=== PATIENT | male | born 1955 | race Two or more races ===

== ENCOUNTER 2023-12-19 09:33 | Inpatient (IN) | payer MEDICARE, SELFPAY ==
[2023-12-19 09:57] VITALS: BP 131/73; PULSE 75; RESP 19; TEMP 36.8; O2SAT 95; BMI 48.7
--- NOTE | 2023-12-19 09:59 | XR_ITS ---
Examination: Foot, left, 3 views Technique: AP, oblique, lateral views foot, 3 views Date and time of exam: December 19, 2023 1017 hours INDICATIONS: Nonhealing wound at the heel and toes redness swelling and pain 3 weeks FINDINGS: Prominent osteopenia Soft tissue swelling about the toes Suspicious for cortical bone destruction involving the distal phalanx third digit and distal phalanx first digit IMPRESSION: Suspicious for cortical bone destruction involving the distal phalanx third digit and distal phalanx first digit Consider MRI foot without contrast follow-up
--- NOTE | 2023-12-19 09:59 | PD.EDRME ---
Rapid Medical Screening Exam RME Arrival date/time: 12/19/23 09:33 68-year-old male presents emergency department complaints of concerns for infection of his left foot patient has been followed up by the wound care center for the last month reports pain and redness has worsened Chief Complaint: Ankle/Foot Injury Time Seen by Provider: 12/19/23 09:39 Vital signs: Vital Signs Temperature 98.3 F 12/19/23 09:57 Pulse Rate 75 12/19/23 09:57 Respiratory Rate 19 12/19/23 09:57 Blood Pressure 131/73 H 12/19/23 09:57 Pulse Oximetry (%) 95 12/19/23 09:57 Oxygen Delivery Method Room Air 12/19/23 09:57
[2023-12-19 10:26] LABS: Basophils # (Auto) 0.1 Thou/mm3 (0.0-0.2); Basophils % (Auto) 1 % (0-2.5); Eosinophils % (Auto) 0 % (0-10); Hematocrit 43.2 % (41.0-53.0); Hemoglobin 14.7 g/dL (13.5-16.0); Immature Granulocytes % (Auto) 1 % (0-0); Immature Granulocytes Auto 0.06 Thou/mm3 (0.00-0.00); Lactate (Lactic Acid) 1.8 mMol/L (0.4-2.0); Lymphocytes % (Auto) 8 % (10-50); Mean Corpuscular Hemoglobin 27.8 pg (25.0-35.0); Mean Corpuscular Volume 82 fL (80-100); Monocytes # (Auto) 0.8 Thou/mm3 (0.0-0.8); Monocytes % (Auto) 6 % (0-12); Neutrophils # (Auto) 10.4 Thou/mm3 (1.8-7.7); Neutrophils % (Auto) 84 % (37-80); Nucleated Red Blood Cell % 0 /100 WBC (0); Platelet Count 227 Thou/mm3 (140-440); RDW Standard Deviation 43.5 fL (35.1-43.9); Red Blood Count 5.28 Miln/mm3 (4.50-5.90); White Blood Count 12.4 Thou/mm3 (3.8-10.6)
[2023-12-19 10:41] LABS: INR 1.1 (0.9-1.3); Partial Thromboplastin Time 33.6 Seconds (22.0-36.0); Prothrombin Time 11.8 Seconds (9.0-12.2)
[2023-12-19 10:51] LABS: Alanine Aminotransferase 13 U/L (10-49); Albumin, Serum 4.1 gm/dL (3.4-4.8); Alkaline Phosphatase 111 U/L (46-116); Anion Gap 7 (7-16); Aspartate Amino Transferase 13 U/L (0-34); BUN/Creatinine Ratio 13 Ratio (12-20); Bilirubin,Total 0.7 mg/dL (0.3-1.2); Blood Urea Nitrogen 13 mg/dL (9-23); C-Reactive Protein 23.9 mg/dL (0.0-0.9); Chloride 102 mMol/L (98-107); Estimated Creatinine Clearance 124.8 mL/min (>60); Glucose 107 mg/dL (74-106); Osmolality,Calculated 266 (275-295); Potassium 3.6 mMol/L (3.4-5.1); Procalcitonin 0.79 ng/ml (0.0-0.49); Sodium 133 mMol/L (136-145); Total Protein 8.1 gm/dL (5.7-8.2); eGFR > 60 See Note
[2023-12-19 13:30] LABS: Sed Rate (ESR) 89 mm/hr (0-20)
--- NOTE | 2023-12-19 16:05 | PD.EDWOUND ---
ED Wound/Laceration-RME/HPI General Chief Complaint: Ankle/Foot Injury Stated Complaint: LEFT ANKLE RED WARM TO TOUCH ; SEEN ER 2-3 WK AGO Time Seen by Provider: 12/19/23 09:39 Arrival date/time: 12/19/23 09:33 RME / HPI RME / HPI narrative: 12/19/23 09:33 68-year-old male presents emergency department complaints of concerns for infection of his left foot patient has been followed up by the wound care center for the last month reports pain and redness has worsened I was called by this patient's primary care doctor concern for cellulitis the patient has a left foot leg ulcer that is been managed by wound care but now there is redness extending beyond the area and so patient was sent by private vehicle here for further evaluation. Patient has no fever vomiting diarrhea there is no other complaint or problem other than the left leg ulcer and redness. Related Data Home Medications ?Medication ?Instructions ?Recorded ?Confirmed Aspirin Ec * (ECOTRIN *) 81 mg PO QDAY ##0 05/04/16 ciprofloxacin HCl 500 mg tablet 500 mg PO BID #0 tabs 05/04/16 hydrochlorothiazide 12.5 mg tablet 12.5 mg PO QAM #0 tabs 05/04/16 lisinopril 5 mg tablet 5 mg PO QDAY #0 tabs 05/04/16 meloxicam 15 mg tablet (Mobic) 15 mg PO HS #0 tabs 05/04/16 pioglitazone 30 mg tablet (Actos) 15 mg PO QDAY #0 tabs 05/04/16 simvastatin 40 mg tablet (Zocor) 40 mg PO HS #0 tabs 05/04/16 Previous Rx's ?Medication ?Instructions ?Recorded bacitracin zinc 500 unit/gram 1 applic topical QDAY #14.2 grams 11/21/23 topical ointment bismuth tribrom-petrolatum,wh 2 X #3 packets 11/21/23 2 bandage (Xeroform Petrolatum Dressing) Allergies Allergy/AdvReac Type Severity Reaction Status Date / Time No Known Allergies Allergy Verified 12/19/23 09:35 Review of Systems Review of Systems Narrative Review of Systems: Review of Systems: Constitutional: DENIES: Fevers,; Eyes: DENIES: Loss of vision, Head/Ear/Nose: DENIES: Loss of hearing. Throat: Denies dysphagia. Cardiovascular: Denies chest pain, Dyspnea or syncope. Respiratory: See HPI DENIES: Shortness of breath, Gastrointestinal: DENIES: Rectal bleeding or melena. Genitourinary: DENIES: Dysuria (painful or difficult urination),; Musculoskeletal: See HPI DENIES: Arthralgia (pain in a joint),; Skin: See HPI DENIES: Rash,; Neurological: DENIES: loss of function or movement,; Psychiatric: DENIES: recent major life stressor, emotional problem, illicit drug use or abuse,; Endocrinology: DENIES: Weight change,; Hematologic/Lymphatic: DENIES: Abnormal bruising. Allergic/Immunologic: DENIES: Urticaria (hives), ED Exam Narrative Physical exam: Physical Exam: General: The vital signs were reviewed. The patient is non-toxic, in no apparent distress and appears healthy with a patent airway, no respiratory distress and has no apparent circulatory problems. Head & Scalp: Normocephalic, atraumatic. Face: Appears normal and is without lesions, deformity. Ears: Left external pinna appears normal. Right external pinna appears normal. Eyes: The sclera is anicteric. No obvious photophobia. The Left and Right Orbit/Lid/Conjunctiva appears normal without swelling, discoloration or injection. Nose: The nose is without deformity, discharge or tenderness; Throat: Appears normal. The mucous membranes are pink and moist without exudates, redness or mass seen. The tongue appears normal. Neck: The neck is supple and no apparent mass or adenopathy. Chest: The chest wall is normal in size and symmetry and has no chest wall tenderness or crepitus. The patient displays normal ventilator effort without retractions, accessory muscle use and has adequate air movement bilaterally with no wheezes and no rales. Cardiovascular: Regular rate and rhythm; No murmurs, rubs, or gallops; Gastrointestinal: The abdomen appears normal. No obvious hernias or mass. The abdomen is soft and benign, non-distended, with no pain, no guarding and no rebound tenderness. Bowel sounds are present and normal sounding. No CVA tenderness. Genitourinary: Back/Spine: Nontender normal inspection Extremities/Musculoskeletal/lymphatic: Patient has extensive dressing on his left lower leg and foot which took 5 minutes to unwrap revealing the following Left foot has excoriated and diffuse breakdown of skin over the toes on the distal foot leg has distal ulcer and cellulitis erythema moving up 20 cm up the leg without any lymphangitic streak. The right leg and foot appears to be normal.. The bilateral upper and lower extremities are warm. There is no evidence of arterial insufficiency. There is no evidence of venous insufficiency/edema. The patient spontaneously moves bilateral upper and lower extremities with no pain and no limitation of movement. There is no apparent, injury or trauma. Skin: The skin is warm, dry and intact. No rashes. No petechia. No purpura. No abnormal bruising. The color is appropriate with no cyanosis. Mental status/Psychiatric: Mental status is appropriate for age. The patient has no apparent delusions, visual hallucinations, no apparent audible hallucinations. The patient has no apparent suicidal thoughts/ideation and no apparent homicidal thoughts/ideation. Neurological: The patient is awake, alert, interactive, cordial, cooperative and is oriented to name and situation. The patient follows commands and answers historical question with no impairment. There is no visual disturbance apparent. The pupils are equal and reactive bilaterally with normal eye movements and no diplopia The bilateral upper and lower extremities have normal strength, normal range of motion and normal functioning. The gait, station and balance appear to be baseline with no acute change Course Quality Measures none Orders Category Date Time Status XR foot comp LT min 3V Stat Exams 12/19/23 09:59 Completed Blood Culture (Lab) Stat Lab 12/19/23 10:09 Received CBC Stat Lab 12/19/23 10:14 Completed CMP [Comprehensive Metabolic Panel] Stat Lab 12/19/23 10:14 Completed CRP [C-Reactive Protein] Stat Lab 12/19/23 10:14 Completed ESR [Sed Rate (ESR)] Stat Lab 12/19/23 10:14 Completed Lactic Acid [Lactate (Lactic Acid)] Stat Lab 12/19/23 10:14 Completed PT [Prothrombin Time with INR] Stat Lab 12/19/23 10:14 Completed PTT [Partial Thromboplastin Time] Stat Lab 12/19/23 10:14 Completed Procalcitonin Stat Lab 12/19/23 10:14 Completed Piper/Tazo 3.375 gm [Zosyn] Med 12/19/23 18:07 Active 3.375 gm in 50 ml IV X1 Vancomycin Pharmacy to Dose Med 12/19/23 18:15 Ordered 1 each IV QDAY Vital Signs Vital signs: Vital Signs Temperature 98.3 F 12/19/23 09:57 Pulse Rate 75 12/19/23 09:57 Respiratory Rate 19 12/19/23 09:57 Blood Pressure 131/73 H 12/19/23 09:57 Pulse Oximetry (%) 95 12/19/23 09:57 Oxygen Delivery Method Room Air 12/19/23 09:57 Wound / Laceration MDM Narrative MDM Narrative:: Patient 68-year-old who comes in with extensive wounds to his distal foot with ulcers and now redness moving up the leg with no lymphangitic streak. He has obvious cellulitis clinically. Hospitalist was called and came down and will be admitting this patient and we agreed on Vanco and Zosyn as initial starting antibiotics white count is 12.4 left shift of 84% sed rate is 89. PT/INR within normal limits. CHEM panel is unremarkable. She C-reactive protein is also elevated. Procalcitonin is elevated. Foot x-ray reveals questionable cortical disruption concerning for osteo and recommend MRI. Hospitalist will admit Patient data External records reviewed:: [facility] previous records Clinical information provided by:: patient and other (specify) (I spoke with the patient's primary care 3 time who called before the patient was sent and several times but patient unfortunately had to wait as there were no beds and the best we had was a chair at 1800 hrs.) Social determinants that could affect healthcare access:: none Patient has the following chronic illnesses:: Diabetes How is presenting disease/condition affected by chronic disease/condition?: exacerbated by Evaluation data The following diagnostics were reviewed and interpreted by me:: lab results (See MDM above) and radiology exam(s) (See MDM above) Lab and/or radiology exams considered but not ordered:: MRI will probably get done at a later time as inpatient Interpretation Summary: Patient is diabetic has a foot ulcer for the last 3 weeks has rapidly worsened in the obvious cellulitis and possibly osteomyelitis with elevated sed rate and CRP. Medications / Prescriptions Medications or Prescriptions considered but not ordered:: None Medication administrations:: Medication Administration History Piperacillin/Tazobactam/Dextrose (Zosyn) 3.375 gm in 50 mls @ 100 mls/hr IV X1 ONE Stop: 12/19/23 18:36 Pharmacy Consult (Vancomycin Pharmacy To Dose 1 Each Each) 1 each IV QDAY CARLA Stop: 01/18/24 18:14 As above Consultations Consultation(s) initiated? (list below): No Diagnosis Wound Differential Diagnosis: other (Venous stasis ulcer) Most likely diagnosis given after review of the tests above:: Cellulitis secondary to osteo and/or foot ulcer Admission Indicated Admission indicated?: indicated Admission Request Was there a request for admission?: Yes Admission Attestation Admission request attestation: Discussed case with [] from Hospitalist service regarding admission. Discussed patients ED course, exam findings, labs, and radiology results. The Hospitalist [agrees,declines] to accept the patient for admission. Disposition Plan Disposition Plan: Admit Discharge Plan Plan Patient Disposition: Admit Acute Care w/in Hospital Disposition Comment: Dr. STEELE hospitalist Prescriptions/Referrals Prescriptions/Med Rec: No Action Aspirin Ec * (ECOTRIN *) 81 MG TABLET.DR 81 mg PO QDAY Qty: 0 meloxicam [Mobic] 15 MG tablet 15 mg PO HS Qty: 0 ciprofloxacin HCl 500 MG tablet 500 mg PO BID Qty: 0 simvastatin [Zocor] 40 MG tablet 40 mg PO HS Qty: 0 lisinopril 5 MG tablet 5 mg PO QDAY Qty: 0 pioglitazone [Actos] 15 MG tablet 15 mg PO QDAY Qty: 0 hydrochlorothiazide 12.5 MG tablet 12.5 mg PO QAM Qty: 0 bacitracin zinc 500 unit/gram ointment 1 applic topical QDAY Qty: 14.2 1RF (DME) Xeroform Petrolatum Dressing 2 X 2 bandage See Rx Instructions .Route Qty: 3 0RF Rx Instructions: Apply once a day to the toes and the base of the foot, remove the old ones each day and replace with new ones. Referrals: Lashae Coto MD [Primary Care Provider] - In 1 week Problem List Clinical Impression: Cellulitis of foot, left, Diabetes Patient/Caregiver Discharge Instructions Print Language: Arabic Stand Alone Forms: Brittaney Award Info., Patient Portal Info Letter
[2023-12-19 16:24] VITALS: BP 138/80; PULSE 79; RESP 20; TEMP 36.7; O2SAT 97
--- NOTE | 2023-12-19 18:15 | XR_ITS ---
Examination: Venous duplex lower extremity sonogram, bilateral. Date and time of exam: December 19, 2023 10:24 PM Indications: Lower leg swelling and pain this week Technique: Multiple sonographic images of the deep venous system have been obtained. B-mode/2-D grayscale imaging of vascular structures and Doppler spectral analysis (waveforms) and color performed Both legs are examined. Findings: Positive for acute deep vein thrombus in the right mid and distal superficial femoral veins Right posterior tibial vein is not diagnostically visualized Positive for acute thrombus in the left proximal superficial vein and left popliteal vein Impression: Positive for bilateral acute deep vein thrombus
--- NOTE | 2023-12-19 18:24 | PD.HHHP ---
Documentation for date of: 12/19/23 HPI - Hospitalist History of Present Illness History of present illness: 68-year-old male with history of insulin-dependent diabetes mellitus, complicated with left foot diabetic ulcer who is being followed by the wound care clinic, also complicated by diabetic peripheral neuropathy, morbid obesity, hypertension, and hyperlipidemia, who presented with a chief complaint of worsening wounds over his left foot. Patient mentioned that he has worsening wounds on his left foot. He was seen by the wound care clinic who got concerned. He was started on oral antibiotic however the situation did not improve. His primary care doctor called the hospital and let them know that he needs to go to the ED. In the ED, his vital signs were stable. Labs showed mild leukocytosis. X-ray of the foot showed bony destruction and soft tissue swelling. Patient received vancomycin/Zosyn. He was admitted for further evaluation and management. Past medical history: In addition to above, includes low back injury with spinal injury complicated with bladder dysfunction status post chronic Issa catheter and bilateral lower extremity paresthesia. Surgical history: Includes arthroscopy and dental procedures. Social history: Reported no current alcohol use, tobacco use, or illicit drug use. Family history: Positive for diabetes and hypertension. Prior medication history was reviewed. He was asked about his current medications. Allergies: No reported drug allergies. Review of Systems Review of Systems Narrative Review of Systems: General: No fevers, no chills, no weight loss, no sweating, no generalized weakness. Eyes: No changes in vision from baseline. HEENT: No head trauma, no neck trauma, no difficulty swallowing, no nasal congestion, no sore throat. Respiratory: No cough, no sputum production, no shortness of breath. Cardiovascular: No chest pain, no palpitations, left lower extremity swelling. Abdomen: No abdominal pain, no nausea, no vomiting, no diarrhea, no constipation. Genitourinary: No dysuria, no changes in urine appearance, no changes in urine amount and frequency from baseline Skin: No new rash reported. Musculoskeletal: No muscle pain, no muscle weakness. Neuro: No weakness, bilateral lower extremity numbness, no facial deviation, no dizziness. Psych: No current depressive symptoms. No anxiety. Meds Home Medications and Allergies Home Medications ?Medication ?Instructions ?Recorded ?Confirmed ?Type empagliflozin 10 mg tablet 10 mg PO DAILY 12/19/23 12/19/23 History (Jardiance) insulin glargine 100 unit/mL (3 50 unit subcut BID 12/19/23 12/19/23 History mL) subcutaneous pen (Lantus Solostar U-100 Insulin) pregabalin 150 mg capsule (Lyrica) 150 mg PO QID 12/19/23 12/19/23 History sitagliptin phosphate 100 mg 100 mg PO DAILY 12/19/23 12/19/23 History tablet (Januvia) sulfamethoxazole 800 1 tab PO Q12H 12/19/23 12/19/23 History mg-trimethoprim 160 mg tablet Allergies Allergy/AdvReac Type Severity Reaction Status Date / Time No Known Allergies Allergy Verified 12/19/23 09:35 Exam Vital Signs Temp Pulse Resp BP Pulse Ox O2 Del Method 98.0 F 79 20 138/80 H 97 Room Air 12/19/23 16:24 12/19/23 16:24 12/19/23 16:24 12/19/23 16:24 12/19/23 16:24 12/19/23 16:24 Narrative General: Alert and oriented x3. Morbidly obese. In no acute distress. Eyes: Pupils are equal and reactive to light bilaterally. HEENT: Atraumatic, normocephalic. No JVD noted. Cardiovascular: Normal S1 and S2. Normal rate and regular rhythm. No murmurs appreciated. Left lower extremity edema noted. No JVD noted. Respiratory: No respiratory distress. Lungs are clear to auscultation bilaterally. No wheezing or crackles heard. Abdomen: Soft, nontender, nondistended. Skin: No rash. Warm to touch. Musculoskeletal: Significant gangrenous involving the left foot that starts in all 5 toes to the metatarsals with purulent discharge and foul smelling. Neuro: Alert and oriented x3. Sensation is decreased in the lower extremities in a sock pattern. Strength is 5/5 and symmetric. Psych: Normal affect and mood. Results - Hospitalist Labs Diagrams: 12/19/23 10:14 12/19/23 10:14 Labs: Short CBC 12/19/23 Range/Units 10:14 WBC 12.4 H (3.8-10.6) Thou/mm3 Hgb 14.7 (13.5-16.0) g/dL Hct 43.2 (41.0-53.0) % Plt Count 227 D (140-440) Thou/mm3 BMP 12/19/23 10:14 Sodium 133 L Potassium 3.6 Chloride 102 Carbon Dioxide 24.0 BUN 13 Creatinine 1.0 Glucose 107 H Calcium 9.0 Liver Function 12/19/23 Range/Units 10:14 Total Bilirubin 0.7 (0.3-1.2) mg/dL AST 13 (0-34) U/L ALT 13 (10-49) U/L Alkaline Phosphatase 111 (46-116) U/L Albumin 4.1 (3.4-4.8) gm/dL Assessment & Plan -Hospitalist Patient Synopsis 68-year-old male with uncontrolled diabetes and diabetic foot ulcers who presented with worsening gangrene over his left foot that failed outpatient therapy and was admitted for IV antibiotics and surgical consultation. Left foot gangrene Diabetic foot ulcer In the setting of history of uncontrolled insulin-dependent diabetes and peripheral neuropathy. Plan: Started the patient on vancomycin/Zosyn Consulted general surgery for possible debridement/amputation Treatment of uncontrolled diabetes as below Continue wound care Management of pain with ibuprofen/oxycodone as needed depending on the severity Uncontrolled diabetes mellitus with hyperglycemia Type II. Insulin-dependent. Most recent A1c is 10.1. Plan: Resume home Lantus 50 units twice daily Start sliding scale insulin ACHS fingersticks Diabetic diet Counseled the patient regarding the importance of medication compliance and need for close fingerstick monitoring Resume home Lyrica for diabetic neuropathy Lower extremity swelling Left more than the right. Likely in setting of foot infection. Ordered Doppler ultrasound to rule out DVT. Started DVT prophylaxis with subcutaneous heparin Morbid obesity Obstructive sleep apnea BMI is 48.7 on admission. This is complicating his diabetes management. He will need outpatient weight loss program. Resume CPAP at night for associated sleep apnea. CODE STATUS is DNR/DNI. Patient expressed understanding of what that means. Diet is low carb consistent Admitting to med surg DVT prophylaxis with subcutaneous heparin Has a chronic Issa catheter Has peripheral IVs Quality Measures Quality Measures VTE prophylaxis (Subcutaneous heparin) Advance care planning discussed with:: patient
[2023-12-19] MEDS: PIPER/TAZO 3.375 GM 3.375 GM/50 ML BAG IV ×2 (18:32→21:45)
[2023-12-19] MEDS: Vancomycin Inj 2,000 MG in SODIUM CHLORIDE 0.9% 500 ML 500 ML 150 MG IV (18:33)
[2023-12-19 18:58] VITALS: BP 109/73; PULSE 70; RESP 18; TEMP 37.7; O2SAT 100
--- NOTE | 2023-12-19 20:18 | PC.NURSE ---
1944 PT STATED HE TOOK HIS OWN LYJOSLYNA.
[2023-12-19] MEDS: oxyCODONE/APAP 5/325 TABLET 1 TAB PO (20:19)
[2023-12-19] MEDS: INSULIN GLARGINE (Lantus) 5 UNIT/0.05 ML (PER 5 UNITS) 50 UNIT SC (21:41)
[2023-12-19] MEDS: HEPARIN SOD INJ 5000 UNIT/ML VIAL SC (21:41)
[2023-12-19] MEDS: INSULIN HUM REGULAR 1 UNIT/0.01 ML (PER UNIT) SC (21:44)
[2023-12-19 22:36] VITALS: BMI 50.0
[2023-12-20] VITALS (8 sets, daily range): BP systolic 106–130; BP diastolic 56–67; PULSE 65–76; RESP 18–20; TEMP 36.1–36.6; O2SAT 96–100; BMI 49.2; BMI 49.0
--- NOTE | 2023-12-20 01:10 | PC.NURSE ---
pt placed own cpap on.
[2023-12-20] MEDS: Heparin/D5w 25K 250 ML Ivpb 25,000 UNIT/250 ML BAG 18 UNIT IV (02:08)
[2023-12-20] MEDS: HEPARIN SOD INJ 5000 UNIT/ML VIAL 3000 UNIT IV (02:08)
[2023-12-20] MEDS: PREGABALIN 75 MG CAPSULE 150 MG PO ×4 (02:34→20:42)
--- NOTE | 2023-12-20 03:00 | PC.NURSE ---
[employer]nd [employer] salesperson: Freddy Mcdowell(brother) cp#[phone]
[2023-12-20 03:20] LABS: Partial Thromboplastin Time 32.5 Seconds (22.0-36.0); Prothrombin Time 11.4 Seconds (9.0-12.2)
--- NOTE | 2023-12-20 03:30 | PC.NURSE ---
[employer] downtime occurred on <12/20/23> from <0200> to <0300>.
[2023-12-20] MEDS: PIPER/TAZO 3.375 GM 3.375 GM/50 ML BAG IV ×3 (05:37→21:09)
[2023-12-20 05:48] LABS: Basophils # (Auto) 0.1 Thou/mm3 (0.0-0.2); Basophils % (Auto) 1 % (0-2.5); Eosinophils # (Auto) 0.3 Thou/mm3 (0.0-0.5); Eosinophils % (Auto) 3 % (0-10); Hematocrit 39.3 % (41.0-53.0); Hemoglobin 13.1 g/dL (13.5-16.0); Immature Granulocytes % (Auto) 0 % (0-0); Immature Granulocytes Auto 0.04 Thou/mm3 (0.00-0.00); Lymphocytes # (Auto) 1.7 Thou/mm3 (1.0-4.8); Lymphocytes % (Auto) 18 % (10-50); Mean Corpuscular HGB Conc 33.3 g/dl (31.0-37.0); Mean Corpuscular Hemoglobin 27.5 pg (25.0-35.0); Mean Corpuscular Volume 82 fL (80-100); Monocytes # (Auto) 0.6 Thou/mm3 (0.0-0.8); Monocytes % (Auto) 7 % (0-12); Neutrophils % (Auto) 72 % (37-80); Nucleated Red Blood Cell % 0 /100 WBC (0); Platelet Count 226 Thou/mm3 (140-440); RDW Standard Deviation 43.5 fL (35.1-43.9); Red Blood Count 4.77 Miln/mm3 (4.50-5.90); White Blood Count 9.8 Thou/mm3 (3.8-10.6)
[2023-12-20] MEDS: oxyCODONE/APAP 5/325 TABLET 1 TAB PO ×2 (05:51→12:10)
[2023-12-20 06:14] LABS: Anion Gap 5 (7-16); BUN/Creatinine Ratio 13 Ratio (12-20); Blood Urea Nitrogen 12 mg/dL (9-23); Calcium 8.5 mg/dL (8.3-10.6); Carbon Dioxide 25.8 mMol/L (20.0-31.0); Chloride 103 mMol/L (98-107); Creatinine (Component) 0.9 mg/dL (0.6-1.3); Estimated Creatinine Clearance 139.6 mL/min (>60); Glucose 97 mg/dL (74-106); Osmolality,Calculated 267 (275-295); Potassium 3.5 mMol/L (3.4-5.1); Sodium 134 mMol/L (136-145); eGFR > 60 See Note
[2023-12-20] MEDS: INSULIN GLARGINE (Lantus) 5 UNIT/0.05 ML (PER 5 UNITS) 50 UNIT SC ×2 (08:33→20:59)
[2023-12-20] MEDS: HEPARIN SOD INJ 5000 UNIT/ML VIAL 4000 UNIT IV ×2 (09:35→16:47)
[2023-12-20] MEDS: Vancomycin Inj 1,500 MG in SODIUM CHLORIDE 0.9% 500 ML 500 ML 120 MG IV ×2 (09:39→22:00)
--- NOTE | 2023-12-20 10:19 | PC.SS ---
Rounding: Pending Gen SX reccs and pt currently on IV ABX
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
[2023-12-20] MEDS: Acetic Acid Irrig 0.25% 500 ML BTL 250 ML IRRIG ×2 (12:11→21:16)
[2023-12-20] MEDS: SILVER SULFADIAZINE CR 1% 400G 400 GM JAR TOP ×2 (12:11→21:17)
--- NOTE | 2023-12-20 12:45 | PC.WOUND ---
Rounded with Dr. Isaacs at bedside to evaluate left foot. MD recommendations for BKA. Pt became upset using foul language towards MD, telling MD to leave. Attempted to reassure pt consult is a recommendation only. Pt firmly requesting treatment to be done exactly as per [facility]. Left foot dressed per MD orders.
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
--- NOTE | 2023-12-20 14:49 | PC.PT ---
Hold PT eval until 24hrs from hep drip d/t +DVT on B BROOKE RN made aware. Will see pt once appropriate.
[2023-12-20] MEDS: Heparin/D5w 25K 250 ML Ivpb 25,000 UNIT/250 ML BAG 21.581 UNIT IV (14:55)
--- NOTE | 2023-12-20 15:03 | PC.DIETICIAN ---
Dietitian consult: Pt requesting [employer] Althea 2 w/ reader prior to d/c which he had 2 years ago. He has minimal smartphone knowledge. He has a glucometer but doesn't use it at home Thank you
--- NOTE | 2023-12-20 15:42 | PC.SS ---
Patient is alert/oriented. He resides alone. He is independent with ADL's. Patient admitted for left foot diabetic ulcer. Patient has a CPAP that he uses. Patient brought in his own CPAP. Patient states he's been through a lot medically. He goes to o/p wound care clinic and follows at his p.c.p.'s office for wound care. Patient has a walker w/seat he uses. He states he also has a wheelchair. Patient is very independent and advocates for himself on all medical care and DME/referrals. He states his Sher melendez, is his alt medical decision maker. Patient states he does not want his foot to be amputated. He may want a second opinion. Patient is on i.v. antibiotics. Patient's tenative d/c plan is to return home with HH services. Last appt. with p.c.p., Dr. Coto was last week. Patient has no preference on HH agency.
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
[2023-12-20 16:23] LABS: Partial Thromboplastin Time 38.7 Seconds (22.0-36.0)
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
[2023-12-20] MEDS: INSULIN HUM REGULAR 1 UNIT/0.01 ML (PER UNIT) SC (20:57)
--- NOTE | 2023-12-20 23:09 | PC.NURSE ---
ptt result pending.
[2023-12-21] VITALS (7 sets, daily range): BP systolic 114–150; BP diastolic 62–72; PULSE 66–75; RESP 17–20; TEMP 36.1–36.9; O2SAT 95–97; BMI 14.0
--- NOTE | 2023-12-21 00:46 | PC.NURSE ---
called lab re follow up ptt result pending.
[2023-12-21 00:49] LABS: Partial Thromboplastin Time 40.4 Seconds (22.0-36.0)
[2023-12-21] MEDS: HEPARIN SOD INJ 5000 UNIT/ML VIAL 4000 UNIT IV ×2 (02:23→20:32)
[2023-12-21] MEDS: Heparin/D5w 25K 250 ML Ivpb 25,000 UNIT/250 ML BAG 28.733 UNIT IV (02:26)
[2023-12-21 05:51] LABS: Basophils # (Auto) 0.1 Thou/mm3 (0.0-0.2); Basophils % (Auto) 1 % (0-2.5); Eosinophils # (Auto) 0.3 Thou/mm3 (0.0-0.5); Eosinophils % (Auto) 4 % (0-10); Hematocrit 38.1 % (41.0-53.0); Hemoglobin 12.8 g/dL (13.5-16.0); Immature Granulocytes % (Auto) 0 % (0-0); Immature Granulocytes Auto 0.03 Thou/mm3 (0.00-0.00); Lymphocytes % (Auto) 26 % (10-50); Mean Corpuscular HGB Conc 33.6 g/dl (31.0-37.0); Mean Corpuscular Hemoglobin 28.1 pg (25.0-35.0); Mean Corpuscular Volume 84 fL (80-100); Monocytes # (Auto) 0.6 Thou/mm3 (0.0-0.8); Monocytes % (Auto) 8 % (0-12); Neutrophils # (Auto) 4.8 Thou/mm3 (1.8-7.7); Neutrophils % (Auto) 62 % (37-80); Nucleated Red Blood Cell % 0 /100 WBC (0); Platelet Count 242 Thou/mm3 (140-440); RDW Standard Deviation 44.1 fL (35.1-43.9); Red Blood Count 4.55 Miln/mm3 (4.50-5.90); White Blood Count 7.7 Thou/mm3 (3.8-10.6)
[2023-12-21] MEDS: PIPER/TAZO 3.375 GM 3.375 GM/50 ML BAG IV ×3 (06:00→21:19)
[2023-12-21] MEDS: PREGABALIN 75 MG CAPSULE 150 MG PO ×4 (06:00→21:28)
[2023-12-21 06:23] LABS: Anion Gap 4 (7-16); BUN/Creatinine Ratio 18 Ratio (12-20); Blood Urea Nitrogen 14 mg/dL (9-23); Calcium 8.5 mg/dL (8.3-10.6); Carbon Dioxide 25.5 mMol/L (20.0-31.0); Chloride 104 mMol/L (98-107); Creatinine (Component) 0.8 mg/dL (0.6-1.3); Glucose 115 mg/dL (74-106); Osmolality,Calculated 267 (275-295); Potassium 3.6 mMol/L (3.4-5.1); Sodium 133 mMol/L (136-145); eGFR > 60 See Note
--- NOTE | 2023-12-21 07:07 | PC.NURSE ---
pt on own cpap all night, tolerated well.
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
--- NOTE | 2023-12-21 07:58 | PC.NURSE ---
Called Dr. Gann at 0733 to come speak to patient regarding plan of care, and provide education on fall risk as patient wasn't receptive to nurse education. Dr. Gann in to see patient at 0781
--- NOTE | 2023-12-21 08:33 | PC.NURSE ---
provided education regarding fall risk and safety due to patients injured foot and dvt. pt. needs to wait to get evaluated by physical therapy, patient is upset and kicked out nurse, bed alarm on and call light within reach.
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
[2023-12-21] MEDS: INSULIN GLARGINE (Lantus) 5 UNIT/0.05 ML (PER 5 UNITS) 50 UNIT SC ×2 (08:36→21:46)
[2023-12-21 09:17] LABS: Partial Thromboplastin Time 49.3 Seconds (22.0-36.0)
--- NOTE | 2023-12-21 10:02 | PC.NURSE ---
per physcal therapist patient is not safe to get out of bed, bed alarm on, call light within reach
[2023-12-21] MEDS: SILVER SULFADIAZINE CR 1% 400G 400 GM JAR TOP ×2 (10:32→20:35)
[2023-12-21] MEDS: Acetic Acid Irrig 0.25% 500 ML BTL 250 ML IRRIG ×2 (10:33→20:35)
--- NOTE | 2023-12-21 11:34 | XR_ITS ---
Examination: CTA abdominal aorta iliofemoral runoff. 2-D sagittal coronal reconstructions. 3-D reconstructions, vascular December 22, 2023 0111 hrs. Indications: Gangrene left foot with redness swelling and pain this week Technique: Multiple CTA images of the abdominal aorta iliofemoral runoff arterial vessels, 2.0 mm slice thickness, post intravenous administration 130 cc [id number] 2-D sagittal coronal reconstructions. 3-D reconstructions, vascular 3-D postprocessing, including vascular maximum intensity projection images, 3-D volume rendering Low dose protocols were performed. One or more of the following dose reduction techniques were used; automated exposure control, adjustment of the mA and/or KV according to patient size, use of iterative reconstruction technique. Findings: No focal liver or splenic lesion Gallstones No pancreatic or adrenal mass Moderate renal parenchymal scar formation No pericecal inflammatory change No bowel obstruction Asymmetric thickening of the urinary bladder wall on the left side and anteriorly measuring up to 8 mm Transverse prostate dimension 6.6 cm The urinary Issa catheter balloon is in the prostatic urethra Heavy abdominal aortic calcification, no aneurysmal dilatation No significant stenoses origins celiac superior mesenteric axes or renal arteries Common iliac and external iliac common femoral arteries demonstrate no significant stenoses Bilateral superficial femoral arteries exhibit calcification but no critical stenoses Popliteal arteries bilaterally are intact Multiple 70% plus stenosis in the right anterior tibial artery and main continuation trunk on the right which branches into a posterior tibial artery Diffuse edema surrounding the left lower extremity Left anterior tibial artery demonstrates multiple 70% plus stenosis Left posterior tibial artery is diffusely attenuated Right knee effusion Impression: Significant prostatomegaly Abnormal asymmetric thickening of the urinary bladder wall on the left side and anteriorly, early bladder carcinoma would be included in the differential Multiple significant stenoses in the right anterior tibial artery and right main continuation trunk Multiple significant stenoses in the left anterior tibial artery with diffuse attenuation of the left posterior tibial artery .
[2023-12-21] MEDS: Vancomycin Inj 1,500 MG in SODIUM CHLORIDE 0.9% 500 ML 500 ML 120 MG IV ×2 (11:43→21:19)
[2023-12-21] MEDS: INSULIN HUM REGULAR 1 UNIT/0.01 ML (PER UNIT) SC ×2 (11:43→17:07)
[2023-12-21] MEDS: HEPARIN SOD INJ 5000 UNIT/ML VIAL 4000 UNIT IVP (11:44)
[2023-12-21] MEDS: Heparin/D5w 25K 250 ML Ivpb 25,000 UNIT/250 ML BAG 32.309 UNIT IV (11:46)
--- NOTE | 2023-12-21 12:10 | PC.NURSE ---
In to educate patient about importance of bed alarm, patient stated displeasure about the fall precautions and patient was pushing bed alarm attempting to turn it off/ alter settings. called Erick Hayes to come speak to patient. call light with in reach bed low and locked
--- NOTE | 2023-12-21 14:51 | CHAP ---
10:30 AM Visited by spiritual care volunteer Provided prayer for Patient.
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
[2023-12-21] MEDS: oxyCODONE/APAP 5/325 TABLET 1 TAB PO (17:08)
[2023-12-21] MEDS: Heparin/D5w 25K 250 ML Ivpb 25,000 UNIT/250 ML BAG 35.885 UNIT IV (21:13)
[2023-12-22] VITALS (8 sets, daily range): BP systolic 112–129; BP diastolic 61–71; PULSE 60–78; RESP 17–20; TEMP -13.8–36.7; O2SAT 96–97; BMI 12.0
--- NOTE | 2023-12-22 00:50 | PC.NURSE ---
to ct scan via bed, saline lock iv's.
[2023-12-22 02:59] LABS: Basophils # (Auto) 0.1 Thou/mm3 (0.0-0.2); Basophils % (Auto) 1 % (0-2.5); Eosinophils # (Auto) 0.2 Thou/mm3 (0.0-0.5); Eosinophils % (Auto) 3 % (0-10); Hemoglobin 12.1 g/dL (13.5-16.0); Immature Granulocytes % (Auto) 1 % (0-0); Immature Granulocytes Auto 0.06 Thou/mm3 (0.00-0.00); Lymphocytes # (Auto) 1.8 Thou/mm3 (1.0-4.8); Lymphocytes % (Auto) 22 % (10-50); Mean Corpuscular HGB Conc 32.7 g/dl (31.0-37.0); Mean Corpuscular Hemoglobin 27.4 pg (25.0-35.0); Mean Corpuscular Volume 84 fL (80-100); Monocytes # (Auto) 0.7 Thou/mm3 (0.0-0.8); Monocytes % (Auto) 8 % (0-12); Neutrophils # (Auto) 5.3 Thou/mm3 (1.8-7.7); Neutrophils % (Auto) 66 % (37-80); Nucleated Red Blood Cell % 0 /100 WBC (0); Platelet Count 231 Thou/mm3 (140-440); RDW Standard Deviation 43.6 fL (35.1-43.9); Red Blood Count 4.41 Miln/mm3 (4.50-5.90); White Blood Count 8.1 Thou/mm3 (3.8-10.6)
[2023-12-22 03:14] LABS: INR 1.1 (0.9-1.3); Partial Thromboplastin Time 46.5 Seconds (22.0-36.0); Prothrombin Time 11.9 Seconds (9.0-12.2)
--- NOTE | 2023-12-22 03:26 | PC.NURSE ---
teleradiology tech called rn re ct angio abdomen result= kauffman catheter distended in penile urethra recommend reposition.
[2023-12-22 03:48] LABS: Anion Gap 5 (7-16); BUN/Creatinine Ratio 13 Ratio (12-20); Blood Urea Nitrogen 13 mg/dL (9-23); Calcium 8.5 mg/dL (8.3-10.6); Carbon Dioxide 26.1 mMol/L (20.0-31.0); Chloride 103 mMol/L (98-107); Estimated Creatinine Clearance 125.6 mL/min (>60); Glucose 112 mg/dL (74-106); Osmolality,Calculated 269 (275-295); Potassium 3.9 mMol/L (3.4-5.1); Sodium 134 mMol/L (136-145); eGFR > 60 See Note
[2023-12-22] MEDS: HEPARIN SOD INJ 5000 UNIT/ML VIAL 4000 UNIT IV (04:00)
--- NOTE | 2023-12-22 04:39 | PRELIM_ITS ---
CT angiogram of the abdomen and pelvis with bilateral lower extremities with intravenous contrast (ax ial sections with sagittal and coronal reformats) December 22, 2023 0111 hours Clinical History: jennifer pheral vascular disease, gangrene of foot Comparison: Ultrasound of December 19, 2023.Findings:The ab dominal aorta demonstrates mild atheromatous calcification without evidence of dissection or aneurysm . The celiac, superior mesenteric, inferior mesenteric and bilateral renal arteries are patent to the extent visualized. The common iliac, external iliac and internal iliac arteries are patent bilateral ly. The common femoral, superficial femoral, profunda femoral and popliteal arteries are normal in co urse and caliber. The anterior tibial, posterior tibial, peroneal and dorsalis pedis arteries are pat ent bilaterally.The liver, spleen, pancreas, adrenals and kidneys are unremarkable.Gallstones without evidence of acute cholecystitis. No biliary duct dilation.No evidence of bowel obstruction. No evide nce of appendicitis. There is no significant mesenteric or retroperitoneal adenopathy.Asymmetric [place] of the left urinary bladder wall. The Issa catheter is distended in the penile urethra. There is no free fluid, free air or abscess. Spinal posterior fusion hardware noted. No acute fractures.La rge right complex knee joint effusion.Left leg subcutaneous edema and skin thickening.No evidence of soft tissues emphysema.No evidence of osteomyelitis.Impression:The Issa catheter is distended in the penile urethra. Repositioning is recommended. Asymmetric thickening of the left urinary bladder wall . This is highly suspicious for urinary bladder cancer.Large complex right knee joint effusion. Corre lation with MRI is recommended.Left leg subcutaneous edema and skin thickening, consider cellulitis i n the differential diagnosis.Discussion Details: Results verbally communicated to Connie Chou RN at 06:23 AM ET 12/22/2023. A call back number was provided for a direct Physician [facility]ician [facility]. Report Electronically Signed By: Rafiq Cardoza 12/22/2023 3:26:10 AM [EST]
[2023-12-22] MEDS: PIPER/TAZO 3.375 GM 3.375 GM/50 ML BAG IV ×3 (05:09→21:46)
[2023-12-22] MEDS: PREGABALIN 75 MG CAPSULE 150 MG PO ×4 (05:09→20:41)
--- NOTE | 2023-12-22 06:00 | PC.NURSE ---
used own cpap from home all night, tolerated well.
[2023-12-22] MEDS: Heparin/D5w 25K 250 ML Ivpb 25,000 UNIT/250 ML BAG 39.461 UNIT IV ×3 (06:17→21:33)
[2023-12-22] MEDS: INSULIN GLARGINE (Lantus) 5 UNIT/0.05 ML (PER 5 UNITS) 50 UNIT SC ×2 (08:46→20:42)
[2023-12-22] MEDS: SILVER SULFADIAZINE CR 1% 400G 400 GM JAR TOP ×2 (09:55→20:40)
[2023-12-22] MEDS: Acetic Acid Irrig 0.25% 500 ML BTL 250 ML IRRIG ×2 (09:55→20:40)
[2023-12-22] MEDS: Vancomycin Inj 1,500 MG in SODIUM CHLORIDE 0.9% 500 ML 500 ML 120 MG IV ×2 (10:46→21:46)
[2023-12-22] MEDS: INSULIN HUM REGULAR 1 UNIT/0.01 ML (PER UNIT) SC ×3 (11:44→20:43)
--- NOTE | 2023-12-22 11:57 | CHAP ---
Patient was visited by the Spiritual Care Volunteer who prayed for him. (Volunteer was in the hospital from :00-).
[2023-12-22 12:11] LABS: Partial Thromboplastin Time 65.8 Seconds (22.0-36.0)
--- NOTE | 2023-12-22 15:18 | PC.NURSE ---
went to help pt with incontinance care , after cleaning the pt he refused to take iff soiled underwear
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
--- NOTE | 2023-12-22 17:47 | PC.CM ---
Addendum entered by Martin Kim RN 12/22/23 18:39: 1815- Eusebia from [facility] returned call to decline patient transfer at this time due to capacity, she did request that we call back tomorrow to follow up with census. Addendum entered by Martin Kim RN 12/22/23 17:56: ANDREAS RN spoke with PADDY Brito at [facility] and provided clinicals, she will evaluate and present to her team. ANDREAS THOMASON also spoke with PADDY Laws at [facility] and provided clinicals, she will review and keep us informed. Original Note: Transfer request initiated per Dr. Barlow, patient is in need of vascular surgery for bi-lateral stenosis of the lower extremities and gangrene of right foot. Transfer packet sent to [facility] and [facility].
[2023-12-22] MEDS: oxyCODONE/APAP 5/325 TABLET 1 TAB PO (18:10)
[2023-12-23] VITALS (7 sets, daily range): BP systolic 109–132; BP diastolic 61–72; PULSE 58–65; RESP 18–20; TEMP 36.1–36.9; O2SAT 95–97
[2023-12-23] MEDS: Heparin/D5w 25K 250 ML Ivpb 25,000 UNIT/250 ML BAG 39.461 UNIT IV ×3 (04:17→18:00)
[2023-12-23] MEDS: PIPER/TAZO 3.375 GM 3.375 GM/50 ML BAG IV ×3 (05:35→21:22)
[2023-12-23] MEDS: PREGABALIN 75 MG CAPSULE 150 MG PO ×4 (05:36→20:44)
[2023-12-23 06:22] LABS: Basophils # (Auto) 0.1 Thou/mm3 (0.0-0.2); Basophils % (Auto) 1 % (0-2.5); Eosinophils # (Auto) 0.3 Thou/mm3 (0.0-0.5); Eosinophils % (Auto) 4 % (0-10); Hematocrit 37.4 % (41.0-53.0); Hemoglobin 12.4 g/dL (13.5-16.0); Immature Granulocytes % (Auto) 1 % (0-0); Immature Granulocytes Auto 0.08 Thou/mm3 (0.00-0.00); Lymphocytes # (Auto) 1.9 Thou/mm3 (1.0-4.8); Lymphocytes % (Auto) 22 % (10-50); Mean Corpuscular HGB Conc 33.2 g/dl (31.0-37.0); Mean Corpuscular Hemoglobin 27.7 pg (25.0-35.0); Mean Corpuscular Volume 84 fL (80-100); Monocytes # (Auto) 0.6 Thou/mm3 (0.0-0.8); Monocytes % (Auto) 7 % (0-12); Neutrophils # (Auto) 5.6 Thou/mm3 (1.8-7.7); Neutrophils % (Auto) 65 % (37-80); Nucleated Red Blood Cell % 0 /100 WBC (0); Platelet Count 236 Thou/mm3 (140-440); RDW Standard Deviation 43.5 fL (35.1-43.9); Red Blood Count 4.47 Miln/mm3 (4.50-5.90); White Blood Count 8.6 Thou/mm3 (3.8-10.6)
[2023-12-23 06:45] LABS: Alanine Aminotransferase 11 U/L (10-49); Albumin, Serum 3.4 gm/dL (3.4-4.8); Alkaline Phosphatase 96 U/L (46-116); Anion Gap 3 (7-16); Aspartate Amino Transferase 14 U/L (0-34); BUN/Creatinine Ratio 14 Ratio (12-20); Bilirubin,Total 0.4 mg/dL (0.3-1.2); Blood Urea Nitrogen 11 mg/dL (9-23); Calcium 8.6 mg/dL (8.3-10.6); Calcium (Corrected) 9.1 mg/dL (8.5-10.1); Carbon Dioxide 26.7 mMol/L (20.0-31.0); Chloride 105 mMol/L (98-107); Creatinine (Component) 0.8 mg/dL (0.6-1.3); Globulin 3.5 gm/dL (2.3-3.5); Glucose 95 mg/dL (74-106); Osmolality,Calculated 269 (275-295); Potassium 3.4 mMol/L (3.4-5.1); Sodium 135 mMol/L (136-145); Total Protein 6.9 gm/dL (5.7-8.2); eGFR > 60 See Note
[2023-12-23 06:53] LABS: Partial Thromboplastin Time 67.9 Seconds (22.0-36.0)
--- NOTE | 2023-12-23 09:28 | PC.CM ---
Addendum entered by Farshad Wood RN 12/23/23 15:51: 1545 called [facility] to initiate the transfer. Left VM with automated machine for transfer requests. Faxed face sheet as per automated machine instructions. Addendum entered by Farshad Wood RN 12/23/23 15:35: [address] davila, she stated to try tertiary hospital. 1516 Alejandra from [facility] called back and stated vascular surgeon stated there is nothing he can offer to help the pt. He thinks that one vessel occlusion cannot cause the foot to be necrotic, there is way more than that. He stated if pt is adamant about not wanting the amputation, we can try tertiary hospitals and see if they can help with limb salvage. Addendum entered by Farshad Wood RN 12/23/23 15:07: 1507 called Alejandra at [facility] and informed. She stated she will speak to her vascular surgeon. Addendum entered by Farshad Wood RN 12/23/23 15:05: [address] Santos and he informed me that JAY JAY TVR segmental pressure with 3 level US is not available at our facility. So, they are not able to do it. Addendum entered by Farshad Wood RN 12/23/23 11:07: [address] Davila and informed about the recommendations from vascular surgeon at [facility]. [id number] received call from Alejandra at [facility] that she presented the case to her vascular surgery and he is saying pt has gangrene and it needs to be amputated, there is not much vascular surgery can do but he is willing to help the pt. and recommends JAY JAY TVR segmental pressure with 3 level US. Alejandra stated to call back once the test is done and the report is available. Addendum entered by Farshad Wood RN 12/23/23 10:14: 1009 Called [facility], spoke to Alejandra and initiated the transfer. She wants to speak to Dr. Santos. Conference call connected. Addendum entered by Farshad Wood RN 12/23/23 09:57: 0957 clinicals sent to [facility] and [facility]. Addendum entered by Farshad Wood RN 12/23/23 09:37: 0935 called [facility], spoke to Billie and informed her that pt is agrreable for the transfer. She stated the transfer needs insurance auth. Original Note: [id number] Barlow regarding transfer diagnosis. Pt needs to be transferred for peripheral vascular disease causing gangrene needs vascular surgery services. I also obtained signature on pink form and PCS form. [id number] I went to pt's room along with Warren and spoke to the pt. Pt is agreeable for the transfer. I obtained signature from the pt on pink form. [id number] received call from Billie at [facility]. She wants to confirm if pt is agreeable for the transfer because she stated she reviewed dr. cheema and everywhere it's documented pt doesn't want to be transferred. I informed her that I will speak to the patient and call her back.
[2023-12-23] MEDS: INSULIN GLARGINE (Lantus) 5 UNIT/0.05 ML (PER 5 UNITS) 50 UNIT SC (09:29)
[2023-12-23] MEDS: Acetic Acid Irrig 0.25% 500 ML BTL 250 ML IRRIG (09:31)
[2023-12-23 09:36] LABS: Vancomycin,Trough 13.9 mcg/mL (5.0-10.0)
[2023-12-23] MEDS: SILVER SULFADIAZINE CR 1% 400G 400 GM JAR TOP (10:10)
[2023-12-23] MEDS: Vancomycin Inj 1,500 MG in SODIUM CHLORIDE 0.9% 500 ML 500 ML 120 MG IV ×2 (10:32→21:24)
[2023-12-23] MEDS: oxyCODONE/APAP 5/325 TABLET 1 TAB PO (12:43)
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
--- NOTE | 2023-12-23 20:28 | PC.NURSE ---
PADDY Rose called hospitalist because patient has an order 50 units of lantus, but patient blood sugar is 142. Dr. Nguyen said to give 30 units lantus x1
[2023-12-23] MEDS: INSULIN HUM REGULAR 1 UNIT/0.01 ML (PER UNIT) SC (20:46)
[2023-12-23] MEDS: INSULIN GLARGINE (Lantus) 5 UNIT/0.05 ML (PER 5 UNITS) 30 UNIT SC (20:47)
--- NOTE | 2023-12-23 23:58 | PC.NURSE ---
Patient refused wound care. Patient stated he wants to sleep and not be bothered.
[2023-12-24] VITALS (7 sets, daily range): BP systolic 114–132; BP diastolic 55–77; PULSE 59–93; RESP 16–20; TEMP 36–36.6; O2SAT 95–98
[2023-12-24] MEDS: Heparin/D5w 25K 250 ML Ivpb 25,000 UNIT/250 ML BAG 39.461 UNIT IV (00:27)
--- NOTE | 2023-12-24 03:40 | PC.NURSE ---
PADDY Moreira (transfer nurse) from [facility] called asking for patients covid status. PADDY Rose could not find any covid results. PADDY Moreira was thinking that it was probably not done due to the covid questionaire being no. PADDY Moreira said the case preparer and liner is working to send the face sheet and needed documents. PADDY Moreira said if status of transfer is needed to call [phone] then press option 3 and leave a voicemail.
[2023-12-24] MEDS: PIPER/TAZO 3.375 GM 3.375 GM/50 ML BAG IV ×3 (05:36→22:10)
[2023-12-24] MEDS: PREGABALIN 75 MG CAPSULE 150 MG PO ×4 (05:37→20:25)
[2023-12-24 05:55] LABS: Basophils # (Auto) 0.1 Thou/mm3 (0.0-0.2); Basophils % (Auto) 1 % (0-2.5); Eosinophils # (Auto) 0.4 Thou/mm3 (0.0-0.5); Eosinophils % (Auto) 5 % (0-10); Hematocrit 38.3 % (41.0-53.0); Hemoglobin 12.7 g/dL (13.5-16.0); Immature Granulocytes % (Auto) 1 % (0-0); Immature Granulocytes Auto 0.08 Thou/mm3 (0.00-0.00); Lymphocytes # (Auto) 1.8 Thou/mm3 (1.0-4.8); Lymphocytes % (Auto) 26 % (10-50); Mean Corpuscular HGB Conc 33.2 g/dl (31.0-37.0); Mean Corpuscular Hemoglobin 27.4 pg (25.0-35.0); Mean Corpuscular Volume 83 fL (80-100); Monocytes # (Auto) 0.5 Thou/mm3 (0.0-0.8); Monocytes % (Auto) 7 % (0-12); Neutrophils # (Auto) 4.1 Thou/mm3 (1.8-7.7); Neutrophils % (Auto) 60 % (37-80); Nucleated Red Blood Cell % 0 /100 WBC (0); Platelet Count 244 Thou/mm3 (140-440); RDW Standard Deviation 42.7 fL (35.1-43.9); Red Blood Count 4.63 Miln/mm3 (4.50-5.90); White Blood Count 6.9 Thou/mm3 (3.8-10.6)
[2023-12-24 06:27] LABS: Partial Thromboplastin Time 96.8 Seconds (22.0-36.0)
[2023-12-24 06:29] LABS: Alanine Aminotransferase 13 U/L (10-49); Albumin, Serum 3.4 gm/dL (3.4-4.8); Albumin/Globulin Ratio 0.9 (1.2-2.2); Alkaline Phosphatase 94 U/L (46-116); Anion Gap 5 (7-16); Aspartate Amino Transferase 15 U/L (0-34); BUN/Creatinine Ratio 15 Ratio (12-20); Bilirubin,Total 0.4 mg/dL (0.3-1.2); Blood Urea Nitrogen 12 mg/dL (9-23); Calcium 8.7 mg/dL (8.3-10.6); Calcium (Corrected) 9.2 mg/dL (8.5-10.1); Carbon Dioxide 27.4 mMol/L (20.0-31.0); Chloride 104 mMol/L (98-107); Creatinine (Component) 0.8 mg/dL (0.6-1.3); Globulin 3.7 gm/dL (2.3-3.5); Glucose 94 mg/dL (74-106); Osmolality,Calculated 271 (275-295); Potassium 3.8 mMol/L (3.4-5.1); Sodium 136 mMol/L (136-145); Total Protein 7.1 gm/dL (5.7-8.2); eGFR > 60 See Note
[2023-12-24] MEDS: Heparin/D5w 25K 250 ML Ivpb 25,000 UNIT/250 ML BAG 35.885 UNIT IV ×3 (08:07→22:22)
[2023-12-24] MEDS: Acetic Acid Irrig 0.25% 500 ML BTL 250 ML IRRIG ×2 (09:55→22:24)
[2023-12-24] MEDS: INSULIN GLARGINE (Lantus) 5 UNIT/0.05 ML (PER 5 UNITS) 50 UNIT SC ×2 (09:56→20:30)
[2023-12-24] MEDS: SILVER SULFADIAZINE CR 1% 400G 400 GM JAR TOP ×2 (09:57→22:24)
[2023-12-24] MEDS: guaiFENesin/P-EPHED TABLET 1 TAB PO ×2 (10:23→20:25)
[2023-12-24] MEDS: Vancomycin Inj 1,500 MG in SODIUM CHLORIDE 0.9% 500 ML 500 ML 120 MG IV ×2 (10:23→22:13)
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
[2023-12-24 13:34] LABS: Partial Thromboplastin Time 69.3 Seconds (22.0-36.0)
[2023-12-24] MEDS: INSULIN HUM REGULAR 1 UNIT/0.01 ML (PER UNIT) SC ×2 (16:50→20:29)
[2023-12-24] MEDS: oxyCODONE/APAP 5/325 TABLET 1 TAB PO (20:28)
[2023-12-25] VITALS (7 sets, daily range): BP systolic 107–130; BP diastolic 59–71; PULSE 60–63; RESP 16–20; TEMP 36–36.4; O2SAT 94–98; BMI 49.0
[2023-12-25] MEDS: PIPER/TAZO 3.375 GM 3.375 GM/50 ML BAG IV ×3 (05:31→21:23)
[2023-12-25] MEDS: PREGABALIN 75 MG CAPSULE 150 MG PO ×4 (05:37→21:14)
[2023-12-25] MEDS: Heparin/D5w 25K 250 ML Ivpb 25,000 UNIT/250 ML BAG 35.885 UNIT IV (05:41)
[2023-12-25 05:57] LABS: Basophils % (Auto) 1 % (0-2.5); Eosinophils # (Auto) 0.4 Thou/mm3 (0.0-0.5); Eosinophils % (Auto) 6 % (0-10); Hematocrit 37.5 % (41.0-53.0); Hemoglobin 12.5 g/dL (13.5-16.0); Immature Granulocytes % (Auto) 1 % (0-0); Immature Granulocytes Auto 0.07 Thou/mm3 (0.00-0.00); Lymphocytes # (Auto) 1.8 Thou/mm3 (1.0-4.8); Lymphocytes % (Auto) 30 % (10-50); Mean Corpuscular HGB Conc 33.3 g/dl (31.0-37.0); Mean Corpuscular Hemoglobin 27.8 pg (25.0-35.0); Mean Corpuscular Volume 84 fL (80-100); Monocytes # (Auto) 0.6 Thou/mm3 (0.0-0.8); Monocytes % (Auto) 9 % (0-12); Neutrophils # (Auto) 3.2 Thou/mm3 (1.8-7.7); Neutrophils % (Auto) 53 % (37-80); Nucleated Red Blood Cell % 0 /100 WBC (0); Platelet Count 245 Thou/mm3 (140-440); RDW Standard Deviation 43.9 fL (35.1-43.9); Red Blood Count 4.49 Miln/mm3 (4.50-5.90); White Blood Count 6.1 Thou/mm3 (3.8-10.6)
[2023-12-25 06:34] LABS: Alanine Aminotransferase 14 U/L (10-49); Albumin, Serum 3.2 gm/dL (3.4-4.8); Albumin/Globulin Ratio 0.9 (1.2-2.2); Alkaline Phosphatase 92 U/L (46-116); Anion Gap 5 (7-16); Aspartate Amino Transferase < 10 U/L (0-34); BUN/Creatinine Ratio 13 Ratio (12-20); Bilirubin,Total 0.4 mg/dL (0.3-1.2); Blood Urea Nitrogen 12 mg/dL (9-23); Calcium 8.8 mg/dL (8.3-10.6); Calcium (Corrected) 9.4 mg/dL (8.5-10.1); Carbon Dioxide 27.4 mMol/L (20.0-31.0); Chloride 104 mMol/L (98-107); Creatinine (Component) 0.9 mg/dL (0.6-1.3); Estimated Creatinine Clearance 139.6 mL/min (>60); Globulin 3.7 gm/dL (2.3-3.5); Glucose 156 mg/dL (74-106); Osmolality,Calculated 274 (275-295); Potassium 3.8 mMol/L (3.4-5.1); Sodium 136 mMol/L (136-145); Total Protein 6.9 gm/dL (5.7-8.2); eGFR > 60 See Note
[2023-12-25] MEDS: INSULIN GLARGINE (Lantus) 5 UNIT/0.05 ML (PER 5 UNITS) 50 UNIT SC ×2 (07:44→21:15)
[2023-12-25] MEDS: guaiFENesin/P-EPHED TABLET 1 TAB PO ×2 (07:45→21:14)
[2023-12-25] MEDS: INSULIN HUM REGULAR 1 UNIT/0.01 ML (PER UNIT) SC ×4 (07:45→21:15)
[2023-12-25] MEDS: SILVER SULFADIAZINE CR 1% 400G 400 GM JAR TOP ×2 (07:46→22:10)
[2023-12-25] MEDS: Acetic Acid Irrig 0.25% 500 ML BTL 250 ML IRRIG ×2 (07:46→22:09)
--- NOTE | 2023-12-25 10:02 | PC.CM ---
Addendum entered by Keyla Gong RN 12/25/23 16:46: Dr. Paredes consulted Dr. Green (vascular) to see patient. Addendum entered by Keyla Gong RN 12/25/23 15:45: Previous note was for another patient. Please disregard the note. This patient was not accepted at [facility]. Addendum entered by Keyla Gong RN 12/25/23 15:04: patient has been accepted to [facility] room 1423. Number to call and give report is [phone]. Accepting MD is Dr. Junior Brewster. I will call and set up transport. Packet completed along with CD. I informed patient and nurse. Addendum entered by Keyla Gong RN 12/25/23 11:14: [address] Paredes and I asked him if we consulted our vascular doctors Dr. Green and Dr. Tamayo. He stated he had not, but he would discuss it with Dr. Barlow. 1110 I received a call from Louis at [facility] and the stated their doctor reviewed the images and the paperwork and he declined the patient stating he had nothing to offer for the patient. He also states they are at capacity even if there doctor did accept patient. asked me to continue to work on transfer at other facilities. correction on time noted in previous note : 0940 Original Note: 1939 I called [facility] and left a detailed message for [place] [phone] ext. [phone] asking to assist with authorization for patient to go to [facility]. 909 I received a call from Emilie (finance ) with [facility] phone # [phone] ext [phone]. He asked if we had gotten authorization from patient's insurance. I reviewed notes and I see we did not get auth as of yet. I told her I would call the insurance [place] to try to get authorization. [id number] Louis with [facility] sent me a lifelink and I uploaded all images and I faxed them over. Packet started and CD in the packet. 0810 I spoke to Louis from [facility] today and he requested I push over images.
[2023-12-25] MEDS: Vancomycin Inj 1,500 MG in SODIUM CHLORIDE 0.9% 500 ML 500 ML 120 MG IV ×2 (10:12→21:17)
[2023-12-25] MEDS: oxyCODONE/APAP 5/325 TABLET 1 TAB PO (10:17)
[2023-12-25 13:51] LABS: Partial Thromboplastin Time 63.7 Seconds (22.0-36.0)
--- NOTE | 2023-12-25 14:12 | PC.NURSE ---
1244 PTT resulted at 63.7. Per heparin protocol no bolus or change to infusion. PTT ordered for tomorrow morning 12/26/23 per protocol
[2023-12-25] MEDS: Heparin/D5w 25K 250 ML Ivpb 25,000 UNIT/250 ML BAG 32.309 UNIT IV ×2 (14:38→22:26)
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
--- NOTE | 2023-12-25 16:23 | PC.NURSE ---
Notified that patients lyrica order , provider stated he would restart order.
[2023-12-26] VITALS (7 sets, daily range): BP systolic 111–129; BP diastolic 58–94; PULSE 63–70; RESP 17–19; TEMP 36.1–36.6; O2SAT 96–98; BMI 13.0
[2023-12-26] MEDS: PIPER/TAZO 3.375 GM 3.375 GM/50 ML BAG IV ×2 (05:32→14:34)
[2023-12-26] MEDS: PREGABALIN 75 MG CAPSULE 150 MG PO ×4 (05:36→20:43)
[2023-12-26 06:29] LABS: Basophils # (Auto) 0.1 Thou/mm3 (0.0-0.2); Basophils % (Auto) 1 % (0-2.5); Eosinophils # (Auto) 0.2 Thou/mm3 (0.0-0.5); Eosinophils % (Auto) 4 % (0-10); Hematocrit 39.6 % (41.0-53.0); Immature Granulocytes % (Auto) 1 % (0-0); Immature Granulocytes Auto 0.05 Thou/mm3 (0.00-0.00); Lymphocytes # (Auto) 1.6 Thou/mm3 (1.0-4.8); Lymphocytes % (Auto) 28 % (10-50); Mean Corpuscular HGB Conc 32.8 g/dl (31.0-37.0); Mean Corpuscular Hemoglobin 27.5 pg (25.0-35.0); Mean Corpuscular Volume 84 fL (80-100); Monocytes # (Auto) 0.4 Thou/mm3 (0.0-0.8); Monocytes % (Auto) 6 % (0-12); Neutrophils # (Auto) 3.4 Thou/mm3 (1.8-7.7); Neutrophils % (Auto) 60 % (37-80); Nucleated Red Blood Cell % 0 /100 WBC (0); Platelet Count 251 Thou/mm3 (140-440); Red Blood Count 4.72 Miln/mm3 (4.50-5.90); White Blood Count 5.7 Thou/mm3 (3.8-10.6)
[2023-12-26 07:19] LABS: Alanine Aminotransferase 14 U/L (10-49); Albumin, Serum 3.3 gm/dL (3.4-4.8); Albumin/Globulin Ratio 0.9 (1.2-2.2); Alkaline Phosphatase 90 U/L (46-116); Anion Gap 5 (7-16); Aspartate Amino Transferase 11 U/L (0-34); BUN/Creatinine Ratio 14 Ratio (12-20); Bilirubin,Total 0.4 mg/dL (0.3-1.2); Blood Urea Nitrogen 11 mg/dL (9-23); Calcium 8.7 mg/dL (8.3-10.6); Calcium (Corrected) 9.3 mg/dL (8.5-10.1); Carbon Dioxide 25.7 mMol/L (20.0-31.0); Chloride 104 mMol/L (98-107); Creatinine (Component) 0.8 mg/dL (0.6-1.3); Globulin 3.8 gm/dL (2.3-3.5); Glucose 110 mg/dL (74-106); Osmolality,Calculated 270 (275-295); Potassium 3.6 mMol/L (3.4-5.1); Sodium 135 mMol/L (136-145); Total Protein 7.1 gm/dL (5.7-8.2); eGFR > 60 See Note
[2023-12-26] MEDS: Heparin/D5w 25K 250 ML Ivpb 25,000 UNIT/250 ML BAG 32.309 UNIT IV ×3 (07:36→23:51)
[2023-12-26 07:42] LABS: Partial Thromboplastin Time 63.2 Seconds (22.0-36.0)
[2023-12-26] MEDS: Acetic Acid Irrig 0.25% 500 ML BTL 250 ML IRRIG ×2 (08:22→20:44)
[2023-12-26] MEDS: INSULIN GLARGINE (Lantus) 5 UNIT/0.05 ML (PER 5 UNITS) 50 UNIT SC ×2 (08:22→20:43)
[2023-12-26] MEDS: guaiFENesin/P-EPHED TABLET 1 TAB PO ×2 (08:22→20:43)
[2023-12-26] MEDS: SILVER SULFADIAZINE CR 1% 400G 400 GM JAR TOP ×2 (08:23→20:44)
[2023-12-26] MEDS: oxyCODONE/APAP 5/325 TABLET 1 TAB PO (08:27)
[2023-12-26] MEDS: Vancomycin Inj 1,500 MG in SODIUM CHLORIDE 0.9% 500 ML 500 ML 120 MG IV (11:46)
--- NOTE | 2023-12-26 12:49 | PC.CM ---
Addendum entered by Keyla Gong RN 12/26/23 15:11: I will call patient's insurance to initiate getting authorization for patient. nikky asked that I fax over information. I faxed information today. I called [facility] and I spoke to Nikky to initiate a transfer. Nikky states we will need to get authorization from patient's insurance before they proceed with transfer process. Dr. Tamayo saw patient today and he recommended sending patient to [facility] with Dr Yoel Palomares invasive cardiovascular technologist tong carrier today. Dr. Tamayos notes state he spoke to Dr. Palomares and he agrees to consult on patient if we can transfer him to [facility]. Original Note: 1300 Dr. Paredes called me and stated he spoke to Dr. Tamayo and Dr. Tamayo recommends transferring patient to [facility] for podiatry care and management. Dr. Paredes said he would put in a new order for podiatry services. 1000 I called and spoke to Dr. Paredes to see if he spoke to Dr. Green or Dr. Tamayo. He states he spoke to Dr. Green yesterday but Dr. Green told him to call and speak to Dr. Tamayo today because he was tong carrier.
--- NOTE | 2023-12-26 13:05 | ESCONSULT_ITS ---
HPI Consult details Consult date: 12/26/23 Reason for consultation narrative: Left diabetic foot infection. He was in his usual state of health when he noticed pain in his left forefoot about a week ago which rapidly progressed and led to his hospitalization. He was found to have severe swelling and cellulitis in the leg with gangrene of several toes that has responded well to IV antibiotics and leg elevation. Surgery was consulted and recommended below knee amputation. 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 [facility] does not permit tape calender to do surgery here so there no podiatry doctors on the panel for consultation. Meds Home Medications and Allergies Home Medications ?Medication ?Instructions ?Recorded ?Confirmed ?Type empagliflozin 10 mg tablet 10 mg PO DAILY 12/19/23 12/19/23 History (Jardiance) insulin glargine 100 unit/mL (3 50 unit subcut BID 12/19/23 12/19/23 History mL) subcutaneous pen (Lantus Solostar U-100 Insulin) pregabalin 150 mg capsule (Lyrica) 150 mg PO QID 12/19/23 12/19/23 History sitagliptin phosphate 100 mg 100 mg PO DAILY 12/19/23 12/19/23 History tablet (Januvia) sulfamethoxazole 800 1 tab PO Q12H 12/19/23 12/19/23 History mg-trimethoprim 160 mg tablet Allergies Allergy/AdvReac Type Severity Reaction Status Date / Time No Known Allergies Allergy Verified 12/19/23 09:35 Exam Vital Signs Temp Pulse Resp BP Pulse Ox O2 Del Method FiO2 97.3 F 69 17 127/69 97 CPAP 21 12/26/23 07:52 12/26/23 07:55 12/26/23 07:55 12/26/23 07:52 12/26/23 07:55 12/26/23 07:52 12/25/23 00:00 Narrative Exam Physical exam and shows the patient to be alert and awake in a good historian He is quite obese Physical examination left lower extremity shows the leg to be normal-appearing and upper portion through to the calf with some very mild nonpitting edema. He has a [place] grade 3 wound on the heel that was a result of an injury weeks ago and appears to be healing well. There is gangrene with a mix of wet and dry appearance in the forefoot however the plantar aspect is pink warm and well perfused and there does not appear to be deep space involvement at least not on physical examination. Pedal pulses could not be palpated due to the edema however with handheld Doppler there was strong biphasic arterial signals in both the posterior tibial and anterior tibial arteries. Assessment & Plan Additional Assessment Additional comments: Left forefoot diabetic infection with gangrene and cellulitis that appears to be improving Plan My recommendation is for podiatry to see the patient to manage the forefoot gangrene and try to achieve limb salvage. I believe the arterial perfusion of the foot is good enough to support a reasonable expectation for wound healing As is evidenced by the healthy-appearing healing wound on the heel. At the point where the patient is suitable for outpatient care he could be referred to the wound center for consideration for hyperbaric oxygen therapy. Apparently due to the lack of podiatry services at this hospital the patient will have to be transferred to [facility] to receive podiatric care and [facility] will continue to follow the patient as consultants.
--- NOTE | 2023-12-26 15:41 | CHAP ---
09:30 AM Visited by spiritual care volunteer Provided prayer for Patient
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
[2023-12-26] MEDS: INSULIN HUM REGULAR 1 UNIT/0.01 ML (PER UNIT) SC (20:43)
[2023-12-26 22:16] LABS: Vancomycin,Trough 16.4 mcg/mL (5.0-10.0)
--- NOTE | 2023-12-26 22:31 | PC.NURSE ---
Vanco trough is 16.4, held dose of vanco for tonight.
[2023-12-27] VITALS (8 sets, daily range): BP systolic 120–130; BP diastolic 60–81; PULSE 63–75; RESP 17–20; TEMP 36.1–36.8; O2SAT 94–98
[2023-12-27] MEDS: PREGABALIN 75 MG CAPSULE 150 MG PO ×4 (05:27→20:22)
[2023-12-27 05:28] LABS: Basophils # (Auto) 0.1 Thou/mm3 (0.0-0.2); Basophils % (Auto) 1 % (0-2.5); Eosinophils # (Auto) 0.2 Thou/mm3 (0.0-0.5); Eosinophils % (Auto) 4 % (0-10); Hematocrit 38.3 % (41.0-53.0); Hemoglobin 12.7 g/dL (13.5-16.0); Immature Granulocytes % (Auto) 1 % (0-0); Immature Granulocytes Auto 0.08 Thou/mm3 (0.00-0.00); Lymphocytes # (Auto) 1.8 Thou/mm3 (1.0-4.8); Lymphocytes % (Auto) 29 % (10-50); Mean Corpuscular HGB Conc 33.2 g/dl (31.0-37.0); Mean Corpuscular Hemoglobin 27.7 pg (25.0-35.0); Mean Corpuscular Volume 84 fL (80-100); Monocytes # (Auto) 0.4 Thou/mm3 (0.0-0.8); Monocytes % (Auto) 6 % (0-12); Neutrophils # (Auto) 3.7 Thou/mm3 (1.8-7.7); Neutrophils % (Auto) 59 % (37-80); Nucleated Red Blood Cell % 0 /100 WBC (0); Platelet Count 251 Thou/mm3 (140-440); RDW Standard Deviation 43.2 fL (35.1-43.9); Red Blood Count 4.58 Miln/mm3 (4.50-5.90); White Blood Count 6.3 Thou/mm3 (3.8-10.6)
[2023-12-27 06:08] LABS: Partial Thromboplastin Time 69.4 Seconds (22.0-36.0)
[2023-12-27 06:11] LABS: Alanine Aminotransferase 14 U/L (10-49); Albumin, Serum 3.4 gm/dL (3.4-4.8); Albumin/Globulin Ratio 0.9 (1.2-2.2); Alkaline Phosphatase 92 U/L (46-116); Anion Gap 4 (7-16); Aspartate Amino Transferase 11 U/L (0-34); BUN/Creatinine Ratio 20 Ratio (12-20); Bilirubin,Total 0.4 mg/dL (0.3-1.2); Blood Urea Nitrogen 16 mg/dL (9-23); Calcium (Corrected) 9.5 mg/dL (8.5-10.1); Carbon Dioxide 26.5 mMol/L (20.0-31.0); Chloride 105 mMol/L (98-107); Creatinine (Component) 0.8 mg/dL (0.6-1.3); Globulin 3.9 gm/dL (2.3-3.5); Glucose 166 mg/dL (74-106); Osmolality,Calculated 275 (275-295); Potassium 3.8 mMol/L (3.4-5.1); Sodium 135 mMol/L (136-145); Total Protein 7.3 gm/dL (5.7-8.2); eGFR > 60 See Note
--- NOTE | 2023-12-27 09:21 | PC.CM ---
Addendum entered by Keyla Gong RN 12/27/23 14:44: 1400 I called [facility] and I let them know that [facility] is reviewing patient and they will hopefully give authorization today. 1230 I called Sandra with [employer] and asked if they recieved the fax I sent over. Sandra states they did not received the fax. I let them know I got a confirmation that if went through. I refaxed at this time. Addendum entered by Keyla Gong RN 12/27/23 09:48: I faxed over information to Sandra with [facility] [employer]. Original Note: 919 I received a call back from Sandra at [phone] ext [phone]. She states I need to fax all clinical to her at [phone]. I let her know we have been faxing them clinical daily. she states that is sent to another department and If I want to expedite this transfer I need to fax everything to her with accepting Doctor and the hospitals name. I will fax over information. 0810 I called and left messages with Alisha Townsend and Sandra at [facility] asking them to call me back concerning getting authorization for patient.
[2023-12-27] MEDS: VANCOMYCIN/NS 750 MG IVPB 750 MG/150 ML BAG 120 MG IV ×3 (09:46→21:12)
[2023-12-27] MEDS: PIPER/TAZO 3.375 GM 3.375 GM/50 ML BAG IV ×3 (09:47→21:10)
[2023-12-27] MEDS: Heparin/D5w 25K 250 ML Ivpb 25,000 UNIT/250 ML BAG 32.309 UNIT IV ×2 (09:47→18:25)
[2023-12-27] MEDS: guaiFENesin/P-EPHED TABLET 1 TAB PO ×2 (09:47→20:22)
[2023-12-27] MEDS: oxyCODONE/APAP 5/325 TABLET 1 TAB PO (09:47)
[2023-12-27] MEDS: INSULIN GLARGINE (Lantus) 5 UNIT/0.05 ML (PER 5 UNITS) 50 UNIT SC ×2 (09:47→20:23)
[2023-12-27] MEDS: INSULIN HUM REGULAR 1 UNIT/0.01 ML (PER UNIT) SC ×3 (09:48→20:23)
[2023-12-27] MEDS: Acetic Acid Irrig 0.25% 500 ML BTL 250 ML IRRIG ×2 (14:00→20:25)
[2023-12-27] MEDS: SILVER SULFADIAZINE CR 1% 400G 400 GM JAR TOP (14:00)
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
--- NOTE | 2023-12-27 20:34 | PC.NURSE ---
Spoke to MD Servando Perez regarding heparin drip, pt to be transferred to [facility], per MD to continue Heparin drip.
--- NOTE | 2023-12-27 21:37 | PC.NURSE ---
Give report to the nurse in [facility].
--- NOTE | 2023-12-27 22:05 | PC.NURSE ---
Pt transferred to [facility] with nurse Sheridan, pt is alert and oriented, with Heparin infusing at 32.3ml/hr. No C/O of pain at this time.
== END 2023-12-27 22:05 | disposition short-term general hospital (02) | DRG 300 ==
LOC: SERX 18:07 → SERHOLD 19:01 → S3NX 23:01
PROVIDERS: Nurse Practitioner Primary Care; Student in an Organized Health Care Education/Training Program; Admitting Provider Student in an Organized Health Care Education/Training Program; Emergency Provider Emergency Medicine; PCP Internal Medicine; Visit Provider Internal Medicine
DX: E11.52 Type 2 diabetes mellitus with diabetic peripheral angiopathy with gangrene (principal); L03.116 Cellulitis of left lower limb; Z68.42 Body mass index [BMI] 45.0-49.9, adult; E11.65 Type 2 diabetes mellitus with hyperglycemia; E11.621 Type 2 diabetes mellitus with foot ulcer; E66.01 Morbid (severe) obesity due to excess calories; E11.42 Type 2 diabetes mellitus with diabetic polyneuropathy; T25.422A Corrosion of unspecified degree of left foot, initial encounter; T65.891A Toxic effect of other specified substances, accidental (unintentional), initial encounter; E11.628 Type 2 diabetes mellitus with other skin complications; E78.5 Hyperlipidemia, unspecified; G47.33 Obstructive sleep apnea (adult) (pediatric); I10 Essential (primary) hypertension; L97.529 Non-pressure chronic ulcer of other part of left foot with unspecified severity; Z66 Do not resuscitate; Z91.81 History of falling; Z79.4 Long term (current) use of insulin; Z79.899 Other long term (current) drug therapy; Z79.84 Long term (current) use of oral hypoglycemic drugs
CPT/HCPCS: 36415; 73630; 75635; 80048; 80053; 80202; 83605; 84145; 85025; 85610; 85652; 85730; 86140; 86850; 86900; 86901; 87040; 93970; 96372; 97162; 99285; A4649; J1643; J1644; J1815; J2543; J3370; J3371; J7040; Q9967; A9270

== ENCOUNTER → 2024-01-15 | Outpatient (CLI) | payer MEDICARE, SELFPAY | END | disposition home or self-care (01) | LOC: SWHD 13:23 | PROVIDERS: PCP Physician Assistant; Referring Provider Physician Assistant; Visit Provider Surgery | DX: T25.722 Corrosion of third degree of left foot (principal); L97.325 Non-pressure chronic ulcer of left ankle with muscle involvement without evidence of necrosis; E11.621 Type 2 diabetes mellitus with foot ulcer; E11.52 Type 2 diabetes mellitus with diabetic peripheral angiopathy with gangrene; E66.01 Morbid (severe) obesity due to excess calories; E78.49 Other hyperlipidemia; Z79.84 Long term (current) use of oral hypoglycemic drugs; I10 Essential (primary) hypertension | CPT/HCPCS: 11042; 11045; A9270 ==

== ENCOUNTER → 2024-01-23 | Outpatient (CLI) | payer MEDICARE, SELFPAY | END | disposition home or self-care (01) | LOC: SWHD 13:29 | PROVIDERS: PCP Physician Assistant; Referring Provider Physician Assistant; Visit Provider Student in an Organized Health Care Education/Training Program | DX: I96 Gangrene, not elsewhere classified (principal); T25.722 Corrosion of third degree of left foot; L97.325 Non-pressure chronic ulcer of left ankle with muscle involvement without evidence of necrosis; E11.621 Type 2 diabetes mellitus with foot ulcer; E11.52 Type 2 diabetes mellitus with diabetic peripheral angiopathy with gangrene; E66.01 Morbid (severe) obesity due to excess calories; E78.49 Other hyperlipidemia; Z79.84 Long term (current) use of oral hypoglycemic drugs; I10 Essential (primary) hypertension | CPT/HCPCS: 11043; 11046; 11042; 11045 ×2; A9270 ==

== ENCOUNTER → 2024-01-30 | Outpatient (CLI) | payer MEDICARE, SELFPAY | END | disposition home or self-care (01) | LOC: SWHD 10:39 | PROVIDERS: PCP Physician Assistant; Referring Provider Physician Assistant; Visit Provider Student in an Organized Health Care Education/Training Program | DX: T25.722 Corrosion of third degree of left foot (principal); E11.621 Type 2 diabetes mellitus with foot ulcer; E11.52 Type 2 diabetes mellitus with diabetic peripheral angiopathy with gangrene; E66.01 Morbid (severe) obesity due to excess calories; E78.49 Other hyperlipidemia; Z79.84 Long term (current) use of oral hypoglycemic drugs; I10 Essential (primary) hypertension | CPT/HCPCS: 11042; 11045 ×2; A9270 ==

== ENCOUNTER → 2024-02-08 | Outpatient (CLI) | payer OTHER, SELFPAY | END | disposition home or self-care (01) | LOC: SWHD 14:00 | PROVIDERS: PCP Physician Assistant; Referring Provider Physician Assistant; Visit Provider Student in an Organized Health Care Education/Training Program | DX: I96 Gangrene, not elsewhere classified (principal); T25.722 Corrosion of third degree of left foot; E11.621 Type 2 diabetes mellitus with foot ulcer; E11.52 Type 2 diabetes mellitus with diabetic peripheral angiopathy with gangrene; E66.01 Morbid (severe) obesity due to excess calories; E78.49 Other hyperlipidemia; Z79.84 Long term (current) use of oral hypoglycemic drugs | CPT/HCPCS: 11042; 11045 ×2; A9270 ==

== ENCOUNTER → 2024-02-15 | Outpatient (CLI) | payer OTHER, SELFPAY | END | disposition home or self-care (01) | LOC: SWHD 13:39 | PROVIDERS: PCP Physician Assistant; Referring Provider Physician Assistant; Visit Provider Surgery | DX: I96 Gangrene, not elsewhere classified (principal); T25.722 Corrosion of third degree of left foot; S91.302A Unspecified open wound, left foot, initial encounter; X58.XXXA Exposure to other specified factors, initial encounter; E11.52 Type 2 diabetes mellitus with diabetic peripheral angiopathy with gangrene; E66.01 Morbid (severe) obesity due to excess calories; E78.49 Other hyperlipidemia; Z79.84 Long term (current) use of oral hypoglycemic drugs | CPT/HCPCS: 11042; 11045; A9270 ==

== ENCOUNTER → 2024-02-22 | Outpatient (CLI) | payer OTHER, SELFPAY | END | disposition home or self-care (01) | LOC: SWHD 13:42 | PROVIDERS: PCP Physician Assistant; Referring Provider Physician Assistant; Visit Provider Student in an Organized Health Care Education/Training Program | DX: I96 Gangrene, not elsewhere classified (principal); T25.722 Corrosion of third degree of left foot; S91.302A Unspecified open wound, left foot, initial encounter; X58.XXXA Exposure to other specified factors, initial encounter; E11.52 Type 2 diabetes mellitus with diabetic peripheral angiopathy with gangrene; E66.01 Morbid (severe) obesity due to excess calories; E78.49 Other hyperlipidemia; Z79.84 Long term (current) use of oral hypoglycemic drugs | CPT/HCPCS: 17250; 11042; 11045; A9270 ==

== ENCOUNTER → 2024-02-27 | Outpatient (CLI) | payer OTHER, SELFPAY | END | disposition home or self-care (01) | PROVIDERS: PCP Physician Assistant; Referring Provider Physician Assistant; Visit Provider Student in an Organized Health Care Education/Training Program | DX: I96 Gangrene, not elsewhere classified (principal); T25.722 Corrosion of third degree of left foot; S91.302A Unspecified open wound, left foot, initial encounter; X58.XXXA Exposure to other specified factors, initial encounter; E11.52 Type 2 diabetes mellitus with diabetic peripheral angiopathy with gangrene; E66.01 Morbid (severe) obesity due to excess calories; E78.49 Other hyperlipidemia; Z79.84 Long term (current) use of oral hypoglycemic drugs | CPT/HCPCS: 17250; 11042; 11045; A9270 ==

== ENCOUNTER → 2024-03-07 | Outpatient (CLI) | payer OTHER, SELFPAY | END | disposition home or self-care (01) | LOC: SWHD 14:00 | PROVIDERS: PCP Physician Assistant; Referring Provider Physician Assistant; Visit Provider Student in an Organized Health Care Education/Training Program | DX: T25.722 Corrosion of third degree of left foot (principal); S91.302A Unspecified open wound, left foot, initial encounter; X58.XXXA Exposure to other specified factors, initial encounter; E11.52 Type 2 diabetes mellitus with diabetic peripheral angiopathy with gangrene; E66.01 Morbid (severe) obesity due to excess calories; E78.49 Other hyperlipidemia; Z79.84 Long term (current) use of oral hypoglycemic drugs | CPT/HCPCS: 11042; 17250; A9270 ==

== ENCOUNTER → 2024-03-14 | Outpatient (CLI) | payer OTHER, SELFPAY | END | disposition home or self-care (01) | LOC: SWHD 13:32 | PROVIDERS: PCP Physician Assistant; Referring Provider Physician Assistant; Visit Provider Student in an Organized Health Care Education/Training Program | DX: I96 Gangrene, not elsewhere classified (principal); T25.722 Corrosion of third degree of left foot; S91.302A Unspecified open wound, left foot, initial encounter; X58.XXXA Exposure to other specified factors, initial encounter; E11.52 Type 2 diabetes mellitus with diabetic peripheral angiopathy with gangrene; E66.01 Morbid (severe) obesity due to excess calories; E78.49 Other hyperlipidemia; Z79.84 Long term (current) use of oral hypoglycemic drugs | CPT/HCPCS: 97597; A9270 ==

== ENCOUNTER → 2024-03-21 | Outpatient (CLI) | payer OTHER, SELFPAY | END | disposition home or self-care (01) | LOC: SWHD 13:32 | PROVIDERS: PCP Physician Assistant; Referring Provider Physician Assistant; Visit Provider Student in an Organized Health Care Education/Training Program | DX: I96 Gangrene, not elsewhere classified (principal); T25.722 Corrosion of third degree of left foot; S91.302A Unspecified open wound, left foot, initial encounter; X58.XXXA Exposure to other specified factors, initial encounter; E11.52 Type 2 diabetes mellitus with diabetic peripheral angiopathy with gangrene; E66.01 Morbid (severe) obesity due to excess calories; E78.49 Other hyperlipidemia; Z79.84 Long term (current) use of oral hypoglycemic drugs | CPT/HCPCS: 97597; A9270 ==

== ENCOUNTER → 2024-03-28 | Outpatient (CLI) | payer MEDICARE, SELFPAY | END | disposition home or self-care (01) | LOC: SWHD 13:28 | PROVIDERS: PCP Physician Assistant; Referring Provider Physician Assistant; Visit Provider Student in an Organized Health Care Education/Training Program | DX: I96 Gangrene, not elsewhere classified (principal); T25.722 Corrosion of third degree of left foot; S91.302A Unspecified open wound, left foot, initial encounter; X58.XXXA Exposure to other specified factors, initial encounter; E11.52 Type 2 diabetes mellitus with diabetic peripheral angiopathy with gangrene; E66.01 Morbid (severe) obesity due to excess calories; E78.49 Other hyperlipidemia; Z79.84 Long term (current) use of oral hypoglycemic drugs | CPT/HCPCS: 97597; A9270 ==

== ENCOUNTER → 2024-04-08 | Outpatient (CLI) | payer OTHER, SELFPAY ==
--- NOTE | 2024-04-08 15:48 | XR_ITS ---
Examination: Foot, left, 3 views Technique: AP, oblique, lateral views foot, 3 views Date and time of exam: May 05, 2024 1602 hours INDICATIONS: Left foot swelling and pain beginning 4 months ago FINDINGS: Prominent hallux valgus bunion deformity Severe osteopenia No fractures No concepcion cortical bone destruction Soft tissue swelling dorsum of the foot IMPRESSION: Soft tissue swelling dorsum of the foot If early osteomyelitis is a clinical consideration, suggest MRI foot without contrast follow-up
== END | disposition home or self-care (01) ==
LOC: CDIM 15:32
PROVIDERS: Referring Provider Internal Medicine; Visit Provider Internal Medicine
DX: M25.475 Effusion, left foot (principal); T14.8XXA Other injury of unspecified body region, initial encounter
CPT/HCPCS: 73630

== ENCOUNTER → 2024-04-11 | Outpatient (CLI) | payer OTHER, SELFPAY | END | disposition home or self-care (01) | PROVIDERS: PCP Physician Assistant; Referring Provider Physician Assistant; Visit Provider Student in an Organized Health Care Education/Training Program | DX: I96 Gangrene, not elsewhere classified (principal); E11.621 Type 2 diabetes mellitus with foot ulcer; L97.322 Non-pressure chronic ulcer of left ankle with fat layer exposed; T25.222A Burn of second degree of left foot, initial encounter; E11.52 Type 2 diabetes mellitus with diabetic peripheral angiopathy with gangrene; E66.01 Morbid (severe) obesity due to excess calories; E78.49 Other hyperlipidemia; Z79.84 Long term (current) use of oral hypoglycemic drugs | CPT/HCPCS: 11042; 11045; A9270 ==

== ENCOUNTER → 2024-04-18 | Outpatient (CLI) | payer OTHER, SELFPAY | END | disposition home or self-care (01) | LOC: SWHD 12:42 | PROVIDERS: PCP Physician Assistant; Referring Provider Physician Assistant; Visit Provider Student in an Organized Health Care Education/Training Program | DX: I96 Gangrene, not elsewhere classified (principal); E11.621 Type 2 diabetes mellitus with foot ulcer; T25.322A Burn of third degree of left foot, initial encounter; L97.322 Non-pressure chronic ulcer of left ankle with fat layer exposed; E11.52 Type 2 diabetes mellitus with diabetic peripheral angiopathy with gangrene; E66.01 Morbid (severe) obesity due to excess calories; E78.49 Other hyperlipidemia; Z79.84 Long term (current) use of oral hypoglycemic drugs | CPT/HCPCS: 11042; A9270 ==

== ENCOUNTER 2024-05-06 11:58 | Outpatient (RCR) | payer OTHER, SELFPAY | END 2024-05-06 23:59 | disposition home or self-care (01) | LOC: SWHD 11:58 | PROVIDERS: PCP Physician Assistant; Referring Provider Physician Assistant; Visit Provider Student in an Organized Health Care Education/Training Program | DX: I96 Gangrene, not elsewhere classified (principal); E11.621 Type 2 diabetes mellitus with foot ulcer; L97.322 Non-pressure chronic ulcer of left ankle with fat layer exposed; E11.52 Type 2 diabetes mellitus with diabetic peripheral angiopathy with gangrene; E66.01 Morbid (severe) obesity due to excess calories; E78.49 Other hyperlipidemia; Z79.84 Long term (current) use of oral hypoglycemic drugs | CPT/HCPCS: 11042; 11045; 82962; A9270; G0277 ==

== ENCOUNTER → 2024-05-30 | Outpatient (CLI) | payer OTHER, SELFPAY | END | disposition home or self-care (01) | LOC: SWHD 13:36 | PROVIDERS: PCP Physician Assistant; Referring Provider Physician Assistant; Visit Provider Surgery | DX: I96 Gangrene, not elsewhere classified (principal); E11.621 Type 2 diabetes mellitus with foot ulcer; L97.322 Non-pressure chronic ulcer of left ankle with fat layer exposed; E11.52 Type 2 diabetes mellitus with diabetic peripheral angiopathy with gangrene; E11.40 Type 2 diabetes mellitus with diabetic neuropathy, unspecified; E66.01 Morbid (severe) obesity due to excess calories; E78.49 Other hyperlipidemia; Z79.84 Long term (current) use of oral hypoglycemic drugs | CPT/HCPCS: A9270 ==

== ENCOUNTER 2024-06-05 08:19 | Outpatient (RCR) | payer OTHER, SELFPAY | END 2024-06-05 23:59 | disposition home or self-care (01) | LOC: SWHD 08:19 | PROVIDERS: PCP Physician Assistant; Referring Provider Physician Assistant; Visit Provider Student in an Organized Health Care Education/Training Program | DX: I96 Gangrene, not elsewhere classified (principal); E11.621 Type 2 diabetes mellitus with foot ulcer; L97.322 Non-pressure chronic ulcer of left ankle with fat layer exposed; E11.52 Type 2 diabetes mellitus with diabetic peripheral angiopathy with gangrene; E11.40 Type 2 diabetes mellitus with diabetic neuropathy, unspecified; E66.01 Morbid (severe) obesity due to excess calories; E78.49 Other hyperlipidemia; Z79.84 Long term (current) use of oral hypoglycemic drugs | CPT/HCPCS: 11042 ×3; 11045 ×3; 82962; A9270; G0277 ==

== ENCOUNTER 2024-07-04 11:38 | Outpatient (RCR) | payer OTHER, SELFPAY | END 2024-07-06 23:59 | disposition home or self-care (01) | LOC: SWHD 11:38 | PROVIDERS: PCP Physician Assistant; Referring Provider Physician Assistant; Visit Provider Student in an Organized Health Care Education/Training Program | DX: I96 Gangrene, not elsewhere classified (principal); E11.621 Type 2 diabetes mellitus with foot ulcer; L97.322 Non-pressure chronic ulcer of left ankle with fat layer exposed; E11.52 Type 2 diabetes mellitus with diabetic peripheral angiopathy with gangrene; E11.40 Type 2 diabetes mellitus with diabetic neuropathy, unspecified; E66.01 Morbid (severe) obesity due to excess calories; E78.49 Other hyperlipidemia; Z79.84 Long term (current) use of oral hypoglycemic drugs | CPT/HCPCS: 11042; 82962; A9270; G0277 ==

== ENCOUNTER 2024-08-05 11:53 | Outpatient (RCR) | payer OTHER, SELFPAY | END 2024-08-05 23:59 | disposition home or self-care (01) | LOC: SWHD 11:53 | PROVIDERS: PCP Physician Assistant; Referring Provider Physician Assistant; Visit Provider Student in an Organized Health Care Education/Training Program | DX: I96 Gangrene, not elsewhere classified (principal); E11.621 Type 2 diabetes mellitus with foot ulcer; L97.322 Non-pressure chronic ulcer of left ankle with fat layer exposed; E11.40 Type 2 diabetes mellitus with diabetic neuropathy, unspecified; E66.01 Morbid (severe) obesity due to excess calories; E78.49 Other hyperlipidemia; Z79.84 Long term (current) use of oral hypoglycemic drugs | CPT/HCPCS: 11042 ×3; 82962; A9270; G0277 ==

== ENCOUNTER 2024-08-20 11:04 | Outpatient (RCR) | payer MEDICARE, OTHER, SELFPAY | END 2024-09-05 23:59 | disposition home or self-care (01) | LOC: SWHD 11:04 | PROVIDERS: PCP Physician Assistant; Referring Provider Physician Assistant; Visit Provider Student in an Organized Health Care Education/Training Program | DX: I96 Gangrene, not elsewhere classified (principal); L97.322 Non-pressure chronic ulcer of left ankle with fat layer exposed; S91.102A Unspecified open wound of left great toe without damage to nail, initial encounter; X58.XXXA Exposure to other specified factors, initial encounter; E11.40 Type 2 diabetes mellitus with diabetic neuropathy, unspecified; E66.01 Morbid (severe) obesity due to excess calories; Z79.84 Long term (current) use of oral hypoglycemic drugs | CPT/HCPCS: 17250; 11042; 82962; A9270; G0277 ==

== ENCOUNTER → 2024-08-27 | Outpatient (CLI) | payer OTHER, SELFPAY | END | disposition home or self-care (01) | LOC: SWHD 09:30 | PROVIDERS: PCP Physician Assistant; Referring Provider Physician Assistant; Visit Provider Student in an Organized Health Care Education/Training Program | DX: I96 Gangrene, not elsewhere classified (principal); E11.621 Type 2 diabetes mellitus with foot ulcer; L97.322 Non-pressure chronic ulcer of left ankle with fat layer exposed; S91.102A Unspecified open wound of left great toe without damage to nail, initial encounter; X58.XXXA Exposure to other specified factors, initial encounter; E11.40 Type 2 diabetes mellitus with diabetic neuropathy, unspecified; E66.01 Morbid (severe) obesity due to excess calories; E78.49 Other hyperlipidemia; Z79.84 Long term (current) use of oral hypoglycemic drugs | CPT/HCPCS: 11042; A9270 ==

== ENCOUNTER → 2024-09-03 | Outpatient (CLI) | payer OTHER, SELFPAY | END | disposition home or self-care (01) | LOC: SWHD 10:23 | PROVIDERS: PCP Physician Assistant; Referring Provider Physician Assistant; Visit Provider Student in an Organized Health Care Education/Training Program | DX: I96 Gangrene, not elsewhere classified (principal); L97.322 Non-pressure chronic ulcer of left ankle with fat layer exposed; S91.102A Unspecified open wound of left great toe without damage to nail, initial encounter; X58.XXXA Exposure to other specified factors, initial encounter; E11.40 Type 2 diabetes mellitus with diabetic neuropathy, unspecified; E66.01 Morbid (severe) obesity due to excess calories; Z79.84 Long term (current) use of oral hypoglycemic drugs | CPT/HCPCS: 17250; 11042; A9270 ==

== ENCOUNTER → 2024-09-10 | Outpatient (CLI) | payer OTHER, SELFPAY | END | disposition home or self-care (01) | LOC: SWHD 10:31 | PROVIDERS: PCP Physician Assistant; Referring Provider Physician Assistant; Visit Provider Student in an Organized Health Care Education/Training Program | DX: I96 Gangrene, not elsewhere classified (principal); L97.322 Non-pressure chronic ulcer of left ankle with fat layer exposed; S91.102A Unspecified open wound of left great toe without damage to nail, initial encounter; X58.XXXA Exposure to other specified factors, initial encounter; E11.40 Type 2 diabetes mellitus with diabetic neuropathy, unspecified; E66.01 Morbid (severe) obesity due to excess calories; Z79.84 Long term (current) use of oral hypoglycemic drugs | CPT/HCPCS: 11042; A9270 ==

== ENCOUNTER → 2024-09-17 | Outpatient (CLI) | payer OTHER, SELFPAY | END | disposition home or self-care (01) | LOC: SWHD 09:34 | PROVIDERS: PCP Physician Assistant; Referring Provider Physician Assistant; Visit Provider Student in an Organized Health Care Education/Training Program | DX: I96 Gangrene, not elsewhere classified (principal); L97.322 Non-pressure chronic ulcer of left ankle with fat layer exposed; S91.102A Unspecified open wound of left great toe without damage to nail, initial encounter; X58.XXXA Exposure to other specified factors, initial encounter; E11.40 Type 2 diabetes mellitus with diabetic neuropathy, unspecified; E66.01 Morbid (severe) obesity due to excess calories; Z79.84 Long term (current) use of oral hypoglycemic drugs | CPT/HCPCS: 11042; A9270 ==

== ENCOUNTER → 2024-09-24 | Outpatient (CLI) | payer OTHER, SELFPAY | END | disposition home or self-care (01) | LOC: SWHD 09:28 | PROVIDERS: PCP Physician Assistant; Referring Provider Physician Assistant; Visit Provider Student in an Organized Health Care Education/Training Program | DX: I96 Gangrene, not elsewhere classified (principal); L97.322 Non-pressure chronic ulcer of left ankle with fat layer exposed; S91.102A Unspecified open wound of left great toe without damage to nail, initial encounter; X58.XXXA Exposure to other specified factors, initial encounter; E11.40 Type 2 diabetes mellitus with diabetic neuropathy, unspecified; E66.01 Morbid (severe) obesity due to excess calories; Z79.84 Long term (current) use of oral hypoglycemic drugs | CPT/HCPCS: 11042; 17250; A9270 ==

== ENCOUNTER → 2024-10-01 | Outpatient (CLI) | payer OTHER, SELFPAY | END | disposition home or self-care (01) | LOC: SWHD 10:16 | PROVIDERS: PCP Physician Assistant; Referring Provider Physician Assistant; Visit Provider Student in an Organized Health Care Education/Training Program | DX: I96 Gangrene, not elsewhere classified (principal); L97.322 Non-pressure chronic ulcer of left ankle with fat layer exposed; S91.102A Unspecified open wound of left great toe without damage to nail, initial encounter; X58.XXXA Exposure to other specified factors, initial encounter; E11.40 Type 2 diabetes mellitus with diabetic neuropathy, unspecified; E66.01 Morbid (severe) obesity due to excess calories; Z79.84 Long term (current) use of oral hypoglycemic drugs | CPT/HCPCS: 97597; A9270 ==

== ENCOUNTER → 2024-10-08 | Outpatient (CLI) | payer OTHER, SELFPAY | END | disposition home or self-care (01) | LOC: SWHD 12:55 | PROVIDERS: PCP Physician Assistant; Referring Provider Physician Assistant; Visit Provider Student in an Organized Health Care Education/Training Program | DX: I96 Gangrene, not elsewhere classified (principal); L97.322 Non-pressure chronic ulcer of left ankle with fat layer exposed; S91.102A Unspecified open wound of left great toe without damage to nail, initial encounter; X58.XXXA Exposure to other specified factors, initial encounter; E11.40 Type 2 diabetes mellitus with diabetic neuropathy, unspecified; E66.01 Morbid (severe) obesity due to excess calories; Z79.84 Long term (current) use of oral hypoglycemic drugs | CPT/HCPCS: 97597; A9270 ==

== ENCOUNTER → 2024-10-15 | Outpatient (CLI) | payer OTHER, SELFPAY | END | disposition home or self-care (01) | LOC: SWHD 10:51 | PROVIDERS: PCP Physician Assistant; Referring Provider Physician Assistant; Visit Provider Student in an Organized Health Care Education/Training Program | DX: I96 Gangrene, not elsewhere classified (principal); L97.322 Non-pressure chronic ulcer of left ankle with fat layer exposed; S91.102A Unspecified open wound of left great toe without damage to nail, initial encounter; X58.XXXA Exposure to other specified factors, initial encounter; E11.40 Type 2 diabetes mellitus with diabetic neuropathy, unspecified; E66.01 Morbid (severe) obesity due to excess calories; Z79.84 Long term (current) use of oral hypoglycemic drugs | CPT/HCPCS: 11042; A9270 ==

== ENCOUNTER → 2024-10-22 | Outpatient (CLI) | payer OTHER, SELFPAY | END | disposition home or self-care (01) | LOC: SWHD 11:09 | PROVIDERS: PCP Physician Assistant; Referring Provider Physician Assistant; Visit Provider Surgery | DX: I96 Gangrene, not elsewhere classified (principal); L97.322 Non-pressure chronic ulcer of left ankle with fat layer exposed; E11.40 Type 2 diabetes mellitus with diabetic neuropathy, unspecified; E66.01 Morbid (severe) obesity due to excess calories; Z79.84 Long term (current) use of oral hypoglycemic drugs | CPT/HCPCS: 11042; A9270 ==

== ENCOUNTER → 2024-11-05 | Outpatient (CLI) | payer OTHER, SELFPAY | END | disposition home or self-care (01) | LOC: SWHD 09:30 | PROVIDERS: PCP Physician Assistant; Referring Provider Physician Assistant; Visit Provider Student in an Organized Health Care Education/Training Program | DX: I96 Gangrene, not elsewhere classified (principal); L97.322 Non-pressure chronic ulcer of left ankle with fat layer exposed; E11.40 Type 2 diabetes mellitus with diabetic neuropathy, unspecified; E66.01 Morbid (severe) obesity due to excess calories; Z79.84 Long term (current) use of oral hypoglycemic drugs | CPT/HCPCS: 11042; A9270 ==

== ENCOUNTER → 2024-11-19 | Outpatient (CLI) | payer OTHER, SELFPAY | END | disposition home or self-care (01) | LOC: SWHD 10:19 | PROVIDERS: PCP Physician Assistant; Referring Provider Physician Assistant; Visit Provider Student in an Organized Health Care Education/Training Program | DX: I96 Gangrene, not elsewhere classified (principal); L97.322 Non-pressure chronic ulcer of left ankle with fat layer exposed; L97.522 Non-pressure chronic ulcer of other part of left foot with fat layer exposed; E11.40 Type 2 diabetes mellitus with diabetic neuropathy, unspecified; E66.01 Morbid (severe) obesity due to excess calories; Z79.84 Long term (current) use of oral hypoglycemic drugs | CPT/HCPCS: 97597; 11042; A9270 ==

== ENCOUNTER → 2024-11-26 | Outpatient (CLI) | payer OTHER, SELFPAY | END | disposition home or self-care (01) | LOC: SWHD 10:58 | PROVIDERS: PCP Physician Assistant; Referring Provider Physician Assistant; Visit Provider Student in an Organized Health Care Education/Training Program | DX: I96 Gangrene, not elsewhere classified (principal); L97.322 Non-pressure chronic ulcer of left ankle with fat layer exposed; L97.522 Non-pressure chronic ulcer of other part of left foot with fat layer exposed; E11.40 Type 2 diabetes mellitus with diabetic neuropathy, unspecified; E66.01 Morbid (severe) obesity due to excess calories; Z79.84 Long term (current) use of oral hypoglycemic drugs | CPT/HCPCS: 11042; A9270 ==

== ENCOUNTER → 2024-12-03 | Outpatient (CLI) | payer OTHER, SELFPAY | END | disposition home or self-care (01) | LOC: SWHD 12:49 | PROVIDERS: PCP Physician Assistant; Referring Provider Physician Assistant; Visit Provider Student in an Organized Health Care Education/Training Program | DX: I96 Gangrene, not elsewhere classified (principal); L97.322 Non-pressure chronic ulcer of left ankle with fat layer exposed; L97.522 Non-pressure chronic ulcer of other part of left foot with fat layer exposed; E11.40 Type 2 diabetes mellitus with diabetic neuropathy, unspecified; E66.01 Morbid (severe) obesity due to excess calories; Z79.84 Long term (current) use of oral hypoglycemic drugs | CPT/HCPCS: 11042; A9270 ==

== ENCOUNTER → 2024-12-10 | Outpatient (CLI) | payer OTHER, SELFPAY | END | disposition home or self-care (01) | LOC: SWHD 13:24 | PROVIDERS: PCP Physician Assistant; Referring Provider Physician Assistant; Visit Provider Student in an Organized Health Care Education/Training Program | DX: I96 Gangrene, not elsewhere classified (principal); L97.322 Non-pressure chronic ulcer of left ankle with fat layer exposed; L97.522 Non-pressure chronic ulcer of other part of left foot with fat layer exposed; E11.40 Type 2 diabetes mellitus with diabetic neuropathy, unspecified; E66.01 Morbid (severe) obesity due to excess calories; Z79.84 Long term (current) use of oral hypoglycemic drugs | CPT/HCPCS: 97597; A9270 ==

== ENCOUNTER → 2024-12-16 | Outpatient (CLI) | payer OTHER, SELFPAY | END | disposition home or self-care (01) | LOC: SWHD 12:37 | PROVIDERS: PCP Physician Assistant; Referring Provider Physician Assistant; Visit Provider Student in an Organized Health Care Education/Training Program | DX: I96 Gangrene, not elsewhere classified (principal); L97.322 Non-pressure chronic ulcer of left ankle with fat layer exposed; L97.522 Non-pressure chronic ulcer of other part of left foot with fat layer exposed; E11.40 Type 2 diabetes mellitus with diabetic neuropathy, unspecified; E66.01 Morbid (severe) obesity due to excess calories; Z79.84 Long term (current) use of oral hypoglycemic drugs | CPT/HCPCS: 97597; A9270 ==

== ENCOUNTER → 2024-12-31 | Outpatient (CLI) | payer OTHER, SELFPAY | END | disposition home or self-care (01) | LOC: SWHD 14:40 | PROVIDERS: PCP Physician Assistant; Referring Provider Physician Assistant; Visit Provider Student in an Organized Health Care Education/Training Program | DX: I96 Gangrene, not elsewhere classified (principal); L97.322 Non-pressure chronic ulcer of left ankle with fat layer exposed; L97.522 Non-pressure chronic ulcer of other part of left foot with fat layer exposed; E11.40 Type 2 diabetes mellitus with diabetic neuropathy, unspecified; E66.01 Morbid (severe) obesity due to excess calories; Z79.84 Long term (current) use of oral hypoglycemic drugs | CPT/HCPCS: 97597; A9270 ==

== ENCOUNTER → 2025-01-03 | Outpatient (CLI) | payer OTHER, SELFPAY | END | disposition home or self-care (01) | LOC: SWHD 10:58 | PROVIDERS: PCP Physician Assistant; Referring Provider Physician Assistant; Visit Provider Student in an Organized Health Care Education/Training Program | DX: I96 Gangrene, not elsewhere classified (principal); L97.322 Non-pressure chronic ulcer of left ankle with fat layer exposed; L97.522 Non-pressure chronic ulcer of other part of left foot with fat layer exposed; E11.40 Type 2 diabetes mellitus with diabetic neuropathy, unspecified; E66.01 Morbid (severe) obesity due to excess calories; Z79.84 Long term (current) use of oral hypoglycemic drugs | CPT/HCPCS: 29581; A9270 ==

== ENCOUNTER → 2025-01-07 | Outpatient (CLI) | payer OTHER, SELFPAY | END | disposition home or self-care (01) | LOC: SWHD 12:50 | PROVIDERS: PCP Physician Assistant; Referring Provider Physician Assistant; Visit Provider Student in an Organized Health Care Education/Training Program | DX: I96 Gangrene, not elsewhere classified (principal); L97.322 Non-pressure chronic ulcer of left ankle with fat layer exposed; L97.522 Non-pressure chronic ulcer of other part of left foot with fat layer exposed; E11.40 Type 2 diabetes mellitus with diabetic neuropathy, unspecified; E66.01 Morbid (severe) obesity due to excess calories; Z79.84 Long term (current) use of oral hypoglycemic drugs | CPT/HCPCS: 11042; A9270 ==

== ENCOUNTER → 2025-01-14 | Outpatient (CLI) | payer OTHER, SELFPAY | END | disposition home or self-care (01) | LOC: SWHD 13:57 | PROVIDERS: PCP Physician Assistant; Referring Provider Physician Assistant; Visit Provider Student in an Organized Health Care Education/Training Program | DX: I96 Gangrene, not elsewhere classified (principal); L97.322 Non-pressure chronic ulcer of left ankle with fat layer exposed; L97.522 Non-pressure chronic ulcer of other part of left foot with fat layer exposed; E11.40 Type 2 diabetes mellitus with diabetic neuropathy, unspecified; E66.01 Morbid (severe) obesity due to excess calories; Z79.84 Long term (current) use of oral hypoglycemic drugs | CPT/HCPCS: 11042; 29445; A9270 ==

== ENCOUNTER → 2025-01-16 | Outpatient (CLI) | payer OTHER, SELFPAY | END | disposition home or self-care (01) | LOC: SWHD 11:24 | PROVIDERS: PCP Physician Assistant; Referring Provider Physician Assistant; Visit Provider Student in an Organized Health Care Education/Training Program | DX: I96 Gangrene, not elsewhere classified (principal); L97.322 Non-pressure chronic ulcer of left ankle with fat layer exposed; L97.522 Non-pressure chronic ulcer of other part of left foot with fat layer exposed; E11.40 Type 2 diabetes mellitus with diabetic neuropathy, unspecified; E66.01 Morbid (severe) obesity due to excess calories; Z79.84 Long term (current) use of oral hypoglycemic drugs | CPT/HCPCS: 29581 ==

== ENCOUNTER → 2025-01-21 | Outpatient (CLI) | payer OTHER, SELFPAY | END | disposition home or self-care (01) | LOC: SWHD 11:01 | PROVIDERS: PCP Physician Assistant; Referring Provider Physician Assistant; Visit Provider Student in an Organized Health Care Education/Training Program | DX: I96 Gangrene, not elsewhere classified (principal); L97.322 Non-pressure chronic ulcer of left ankle with fat layer exposed; L97.522 Non-pressure chronic ulcer of other part of left foot with fat layer exposed; E66.01 Morbid (severe) obesity due to excess calories; Z79.84 Long term (current) use of oral hypoglycemic drugs; E11.40 Type 2 diabetes mellitus with diabetic neuropathy, unspecified | CPT/HCPCS: 11042; A9270 ==

== ENCOUNTER → 2025-01-28 | Outpatient (CLI) | payer OTHER, SELFPAY | END | disposition home or self-care (01) | LOC: SWHD 13:07 | PROVIDERS: PCP Physician Assistant; Referring Provider Physician Assistant; Visit Provider Surgery | DX: I96 Gangrene, not elsewhere classified (principal); L97.322 Non-pressure chronic ulcer of left ankle with fat layer exposed; L97.522 Non-pressure chronic ulcer of other part of left foot with fat layer exposed; E11.40 Type 2 diabetes mellitus with diabetic neuropathy, unspecified; E66.01 Morbid (severe) obesity due to excess calories; Z79.84 Long term (current) use of oral hypoglycemic drugs | CPT/HCPCS: 11042; A9270 ==